=== PATIENT | male | born 1935 | race Caucasian/White ===

== ENCOUNTER 2017-03-11 23:22 | Inpatient (IN) ==
[2017-03-11] MEDS ORDERED: *HR* Morphine 2 MG/ML SYRINGE IVP ONE (23:46)
[2017-03-12 00:28] LABS: Basophils % 0.4 %; Eosinophils % 0.1 %; Hematocrit 30.8 % (37.5-50.1); Hemoglobin 9.5 g/dL (12.9-16.9); Immature Granulocytes % 1.4 % (0-4); Lymphocytes # 0.3 K/mcL (0.6-4.6); Lymphocytes % 3.6 %; Mean Corpuscular HGB Conc 30.8 g/dL (31.6-35.5); Mean Corpuscular Hemoglobin 29.8 pg (28.0-33.3); Mean Corpuscular Volume 96.6 fL (83.0-100.0); Mean Platelet Volume 9.1 fL (9.4-12.4); Monocytes # 0.5 K/mcL (0.0-1.3); Monocytes % 7.2 %; Neutrophils # 6.3 K/mcL (1.6-8.9); Platelet Count 217 K/mcL (140-400); Red Blood Count 3.19 M/mcL (4.19-5.50); Red Cell Distribution Width 15.6 % (11.5-14.5); Segmented Neutrophils % 87.3 %
[2017-03-12 00:42] LABS: Alanine Aminotransferase 13 Units/L (7-52); Albumin 3.7 g/dL (3.5-5.7); Albumin/Globulin Ratio 1.7 (1.1-2.2); Alkaline Phosphatase 77 Units/L (34-104); Aspartate Amino Transferase 15 Units/L (13-39); BUN/Creatinine Ratio 22 (6-26); Blood Urea Nitrogen 23 mg/dL (8-23); Calcium 10.5 mg/dL (8.6-10.3); Carbon Dioxide 27 mEq/L (23-29); Chloride 103 mEq/L (98-107); Globulin 2.2 g/dL (2.4-3.5); Glucose 208 mg/dL (70-105); Osmolality,Calculated 292 (280-300); Potassium 3.9 mEq/L (3.5-5.1); Sodium 136 mEq/L (136-145); Total Protein 5.9 g/dL (6.4-8.9); eGFR For African Americans > 60 (> 60); eGFR For Non-African Americans > 60 (> 60)
--- NOTE | 2017-03-12 02:31 | Emergency Department Note ---
Disposition Clinical Impression: Influenza A Abdominal pain Qualifiers: Abdominal location: generalized Qualified Code(s): R10.84 - Generalized abdominal pain Chronic back pain Qualifiers: Back pain location: low back pain Back pain laterality: unspecified Sciatica presence: unspecified whether sciatica present Qualified Code(s): M54.5 - Low back pain; G89.29 - Other chronic pain; G89.29 - Other chronic pain Anemia Qualifiers: Anemia type: unspecified type Qualified Code(s): D64.9 - Anemia, unspecified Disposition: Admitted As Inpatient Condition: Fair Time of Disposition: 02:51 Abdominal Pain HPI - General Chief Complaint: ED Abdominal Pain Stated Complaint: Back Pain / Abd Pain / Constipation Time Seen by Provider: 03/11/17 23:33 Source: patient, EMS Mode of arrival: EMS Limitations: no limitations Nursing Notes Reviewed: Yes Vital Signs Reviewed: Yes - History of Present Illness HPI Narrative: 81-year-old male was transferred here via the [place] [facility] as they said they are unable to admit the patient to their hospital. They said he was out coming over here for A. fib with RVR as well as abdominal pain. After talking to family they said earlier today they went to [facility] to have an outpatient heart catheterization done but they said that he was to 6A sent him to the [facility] to get evaluated. There they found that he was in A. 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 So they transferred him here they said that he is only complaining of abdominal pain. Patient says he does have back pain but is chronic from a surgery he had many years ago. Patient is not complaining of any bloody stools or bloody vomit. He is not currently nauseous. Healing complaining of abdominal pain and feels his belly is bloated. He denied any chest pain setting no shortness of breath. They did do labs and imaging there. Finding no acute abnormalities. Patient otherwise having no complaints including headache, blurry vision, neck pain, back pain, shortness of breath, chest pain, changes in bowel movement, pain with urination pain or tingling in the arms or legs or any generalized weakness. Pain Scale: 7 - Related Data Allergies Allergy/AdvReac Type Severity Reaction Status Date / Time No Known Allergies Allergy Verified 03/11/17 23:26 Review of Systems: 10 point review of systems done and negative unless otherwise stated in history of present illness. All systems ED: reviewed and negative except as stated. Review of Systems: As Per HPI Abdominal Pain PMH - Past Medical History Medical history: Reports: atrial fibrillation, diabetes, GERD, hyperlipidemia, hypertension, other Male Surgical History: Reports: appendectomy, herniorrhaphy, other Psychiatric history: Reports: no psych history - Social History Smoking status: Former smoker Alcohol use: Reports: none Drug use: Reports: none Physical Exam - General Limitations: no limitations General appearance: alert - Head Head exam: atraumatic, normocephalic, normal inspection - Eye Eye exam: Present: normal appearance, PERRL, EOMI - ENT ENT exam: normal exam, normal oropharynx, mucous membranes moist - Neck Neck exam: Present: normal inspection, full ROM, trachea midline - Chest Chest inspection: Present: normal inspection, symmetric chest wall rise - Respiratory Respiratory exam: Present: normal lung sounds bilaterally - Cardiovascular Cardiovascular exam: Present: regular rate, normal rhythm, normal heart sounds - Abdominal Exam Abdominal exam: Present: soft, tenderness, normal bowel sounds. Absent: distention, guarding, rebound, rigidity, Guaman's sign, Rovsing's sign, tenderness at McBurney's Point Abdominal tenderness: Present: diffuse, mild - Extremities Exam Extremities exam: Present: normal inspection, full ROM. Absent: tenderness, pedal edema - Expanded Lower Extremity Exam Neurovascular/Tendon exam: Present: normal capillary refill. Absent: pulse deficit, motor deficit, sensory deficit, tendon deficit - Back Exam Back exam: Present: normal inspection, full ROM. Absent: tenderness - Neurological Exam Neurological exam: Present: alert, oriented X3 - Skin Skin exam: Present: warm, dry, intact, normal color Course Course Narrative: 81-year-old male presented to the emergency department complaining of abdominal pain and many other issues. We will review the labs at the [place] did including CBC , BMP, coags as well as getting a CT of his abdomen and pelvis will upload the chest x-ray and abdominal series. We will give morphine for pain control. Was doing EKG Vital Signs Temperature 98.8 F 03/11/17 23:26 Pulse Rate 109 03/11/17 23:26 Respiratory Rate 14 03/11/17 23:26 Blood Pressure 125/86 03/11/17 23:26 O2 Sat by Pulse Oximetry 94 03/11/17 23:26 Temperature 98.8 F 03/11/17 23:26 Pulse Rate 109 03/11/17 23:26 Respiratory Rate 16 03/12/17 03:29 Blood Pressure 100/75 03/12/17 03:29 O2 Sat by Pulse Oximetry 97 03/12/17 00:26 Oxygen Delivery Oxygen Delivery Nasal Cannula Abdominal Pain - MDM Narrative Medical decision making narrative: 81-year-old male presented to the emergency department complaining of abdominal pain is transferred [place] the [place]. At the [place] he had a hemoglobin of 10.4 today's hemoglobin was now down to 9.4. This is a 1. drop in the course of the day. He wasseen at [place] for a heart catheter due to him being sick since him over there. They diagnosed with having A. fib with RVR after we evaluated his EKG he was in sinus tachycardia with premature atrial complexes. This was not in A. fib with RVR he was recently put on eloquis because of recent being in A. fib this occurred about 1 month ago. He says he has had no hematochezia or hematemesis. There is no source was active bleeding. CT came back showing no acute abnormalities other than a dilated common bile duct. He is having any epigastric pain. Patient's main complaint is just chronic back pain. We gave him morphine which did help a little with the pain. EKG done here again showed no atrial fibrillation with RVR chest x-rays were looked at also were normal. Patient most likely needs to be admitted and observed overnight due to the 1. hemoglobin drop over the course of the day. Spoke with Dr. Jama the hospitalist agreed to admit the patient to their service he recommended telemetry bed. This was done. Patient is admitted in stable condition. Abdomen/Pelvis CT 03/12/17 23:46 IMPRESSION: Dilated common bile duct. Abdominal aortic aneurysm, 4.6 cm. (See recommendations below). RECOMMENDATIONS: Managing Abdominal Aortic Aneurysms 2.6-2.9 cm: Every 5 years* 3.0-3.4 cm: Every 3 years. 3.5-3.9 cm: Every 1 year. 4.0-4.4 cm: Every 1 year. Recommend vascular consultation. 4.5-5.4 cm: Every 6 months. Recommend vascular consultation. Greater than or equal to 5.5 cm: Referral to vascular surgeon. *For abdominal aortas with maximum diameter of 2.6-2.9 cm meeting criteria for AAA (>50% of proximal normal segment). Reference: J Vasc Surg. 2008;50(4 Suppl):S2-49 D/ / Kenji Munson MD / Kenji Munson MD Interpreting Provider: Kenji Munson MD - Medical Records Medical records reviewed: Yes I reviewed the patient's medical records. - Lab Data Lab results reviewed: Yes I reviewed the patient's lab results. Result diagrams: 03/12/17 00:18 03/12/17 00:18 Lab Results 03/12/17 03/12/17 03/12/17 Range/Units 00:18 00:18 00:18 WBC 7.2 (4.3-11.1) K/mcL RBC 3.19 L (4.19-5.50) M/mcL Hgb 9.5 L (12.9-16.9) g/dL Hct 30.8 L (37.5-50.1) % MCV 96.6 (83.0-100.0) fL MCH 29.8 (28.0-33.3) pg MCHC 30.8 L (31.6-35.5) g/dL RDW 15.6 H (11.5-14.5) % Plt Count 217 (140-400) K/mcL MPV 9.1 L (9.4-12.4) fL Immature Gran % 1.4 (0-4) % Seg Neutrophils % 87.3 % Lymphocytes % 3.6 % Monocytes % 7.2 % Eosinophils % 0.1 % Basophils % 0.4 % Neutrophils # 6.3 (1.6-8.9) K/mcL Lymphocytes # 0.3 L (0.6-4.6) K/mcL Monocytes # 0.5 (0.0-1.3) K/mcL Eosinophils # 0.0 (0.0-0.6) K/mcL Basophils # 0.0 (0.0-0.2) K/mcL Sodium 136 (136-145) mEq/L Potassium 3.9 (3.5-5.1) mEq/L Chloride 103 (98-107) mEq/L Carbon Dioxide 27 (23-29) mEq/L BUN 23 (8-23) mg/dL Creatinine 1.03 (0.70-1.30) mg/dL Est GFR ( Amer) > 60 (> 60) Est GFR (Non-Af Amer) > 60 (> 60) BUN/Creatinine Ratio 22 (6-26) Glucose 208 H (70-105) mg/dL Calculated Osmolality 292 (280-300) Lactic Acid (0.5-2.2) mmol/L Calcium 10.5 H (8.6-10.3) mg/dL Total Bilirubin 1.0 (0.3-1.0) mg/dL AST 15 (13-39) Units/L ALT 13 (7-52) Units/L Alkaline Phosphatase 77 (34-104) Units/L Troponin I 0.03 (< 0.04) ng/mL Serum Total Protein 5.9 L (6.4-8.9) g/dL Albumin 3.7 (3.5-5.7) g/dL Globulin 2.2 L (2.4-3.5) g/dL Albumin/Globulin Ratio 1.7 (1.1-2.2) Lipase (11-82) Units/L 03/12/17 03/12/17 Range/Units 00:18 00:18 WBC (4.3-11.1) K/mcL RBC (4.19-5.50) M/mcL Hgb (12.9-16.9) g/dL Hct (37.5-50.1) % MCV (83.0-100.0) fL MCH (28.0-33.3) pg MCHC (31.6-35.5) g/dL RDW (11.5-14.5) % Plt Count (140-400) K/mcL MPV (9.4-12.4) fL Immature Gran % (0-4) % Seg Neutrophils % % Lymphocytes % % Monocytes % % Eosinophils % % Basophils % % Neutrophils # (1.6-8.9) K/mcL Lymphocytes # (0.6-4.6) K/mcL Monocytes # (0.0-1.3) K/mcL Eosinophils # (0.0-0.6) K/mcL Basophils # (0.0-0.2) K/mcL Sodium (136-145) mEq/L Potassium (3.5-5.1) mEq/L Chloride (98-107) mEq/L Carbon Dioxide (23-29) mEq/L BUN (8-23) mg/dL Creatinine (0.70-1.30) mg/dL Est GFR ( Amer) (> 60) Est GFR (Non-Af Amer) (> 60) BUN/Creatinine Ratio (6-26) Glucose (70-105) mg/dL Calculated Osmolality (280-300) Lactic Acid 1.3 (0.5-2.2) mmol/L Calcium (8.6-10.3) mg/dL Total Bilirubin (0.3-1.0) mg/dL AST (13-39) Units/L ALT (7-52) Units/L Alkaline Phosphatase (34-104) Units/L Troponin I (< 0.04) ng/mL Serum Total Protein (6.4-8.9) g/dL Albumin (3.5-5.7) g/dL Globulin (2.4-3.5) g/dL Albumin/Globulin Ratio (1.1-2.2) Lipase 4 L (11-82) Units/L - Radiology Data Radiology results reviewed: Yes I reviewed the patient's radiology results. - EKG Data EKG attestation: Yes I reviewed and interpreted this EKG. EKG results narrative: EKG done at 2339 review myself and attending shows sinus tachycardia with occasional PVCs at a rate of 124, PA interval 128, QRS 86, QTC 371 with a normal axis. There is no acute ST changes, no acute T-wave changes no signs of any other ischemia. No signs of hypertrophy, heart strain, heart block. No signs of WPW/Brugada syndrome no old EKG to compare with. Attestation Statement - Attestation Attestation: I, Jaren Sigala MD, personally evaluated this patient and discussed their management with the resident physician. I reviewed the resident's note and agree with the documented findings, medical decision making, and plan of care. 81-year-old male who was transferred here from the [place] urgent care for admission and evaluation of abdominal pain and back pain. Patient was recently admitted to the hospital about 5 days ago with atrial fibrillation with RVR which was apparently due at that time. He was started on Eliquis. He presented to the [place] complaining of abdominal pain and constipation for the past several days. He also complains of back pain however this is chronic. He has had previous back surgeries and is on chronic pain medications for the back pain. He complains of some nausea but no vomiting. No melena, hematemesis, or hematochezia. No dysuria or gross hematuria but he does complain of some urinary incontinence which started yesterday. On examination patient is a well-developed well-nourished elderly male in no acute distress. He is alert and oriented. There is no cyanosis or diaphoresis. Chest is nontender to palpation. Breath sounds are clear and equal bilaterally. Heart regular with a mild tachycardia. Abdomen soft with slightly increased bowel sounds. There is mild diffuse tenderness. No guarding or rebound tenderness. No obvious organomegaly or masses. No tympany or distention. Labs reviewed. Flu swab positive for influenza A. EKG shows a sinus tachycardia. CT of the abdomen and pelvis showed dilated common bowel duct but otherwise no acute abnormality. The hospitalist, Dr. Jama, was consulted and accepted admission of the patient.
[2017-03-12] MEDS ORDERED: Naloxone 0.4 MG/ML INJ IVP PRN (06:48)
[2017-03-12] MEDS ORDERED: D5% in Water 1,000 ML IVC PRN (06:49)
[2017-03-12] MEDS ORDERED: Dextrose Gel 15 GM/37.5 ML TUBE PO PRN ×2 (06:49)
[2017-03-12] MEDS ORDERED: *HR* Dextrose 50 % in Water (Syg) 50 ML SYRINGE IVP PRN (06:49)
[2017-03-12] MEDS: Insulin LISPRO 300 UNITS/3 ML VIAL SQ SCH ×4 (07:45→21:34)
[2017-03-12 10:20] LABS: Basophils % 0.3 %; Eosinophils # 0.1 K/mcL (0.0-0.6); Eosinophils % 1.5 %; Hematocrit 33.1 % (37.5-50.1); Hemoglobin 10.2 g/dL (12.9-16.9); Immature Granulocytes % 1.4 % (0-4); Lymphocytes # 0.8 K/mcL (0.6-4.6); Lymphocytes % 14.4 %; Mean Corpuscular HGB Conc 30.8 g/dL (31.6-35.5); Mean Corpuscular Hemoglobin 29.8 pg (28.0-33.3); Mean Corpuscular Volume 96.8 fL (83.0-100.0); Mean Platelet Volume 8.6 fL (9.4-12.4); Monocytes # 0.7 K/mcL (0.0-1.3); Monocytes % 11.6 %; Neutrophils # 4.1 K/mcL (1.6-8.9); Platelet Count 205 K/mcL (140-400); Red Blood Count 3.42 M/mcL (4.19-5.50); Red Cell Distribution Width 15.8 % (11.5-14.5); Segmented Neutrophils % 70.8 %
[2017-03-12 10:42] LABS: BUN/Creatinine Ratio 19 (6-26); Blood Urea Nitrogen 21 mg/dL (8-23); Calcium 10.2 mg/dL (8.6-10.3); Carbon Dioxide 30 mEq/L (23-29); Chloride 101 mEq/L (98-107); Glucose 142 mg/dL (70-105); Magnesium 1.6 mg/dL (1.6-2.6); Osmolality,Calculated 289 (280-300); Potassium 3.6 mEq/L (3.5-5.1); Sodium 137 mEq/L (136-145); eGFR For African Americans > 60 (> 60); eGFR For Non-African Americans > 60 (> 60)
[2017-03-12] MEDS ORDERED: *HR* HYDROcodone/Acet 5/325 mg TABLET PO PRN (11:12)
[2017-03-12] MEDS ORDERED: Acetaminophen 325 MG TABLET PO PRN (11:12)
[2017-03-12] MEDS ORDERED: methylPREDNISolone 125 MG/2 ML VIAL IVP ONE (11:17)
[2017-03-12 12:07] LABS: Hematocrit 31.3 % (37.5-50.1); Hemoglobin 9.8 g/dL (12.9-16.9)
--- NOTE | 2017-03-12 12:15 | Internal Med History&Physical ---
Date of Encounter: 03/12/17 Time of Encounter: 10:30 Assessment and Plan (1) Anemia Current visit: Yes Status: Acute 1 according to the patient's patient has a history of anemia he was seen by gps navigation installer at the [facility] she is unsure of why he is anemic. She states that he normally has a hemoglobin around 8-9 he did have a colonoscopy and EGD last year at [facility] EGD was okay apparently he had beginnings of diverticulosis. patient presented from the [facility] after having 1 g hemoglobin drop. He denies any hematemesis melena or hematochezia we will obtain stool for occult blood monitor H/H every 6 -transfuse if less than 8 Anemia workup We will initiate on a Protonix drip I will hold Eliquis and aspirin for now Clear liquid diet Qualifiers: Anemia type: unspecified type Qualified Code(s): D64.9 - Anemia, unspecified (2) Diabetes mellitus Current visit: No Status: Chronic Accu-Cheks before meals and at bedtime with sliding scale Qualifiers: Diabetes mellitus type: type 2 Diabetes mellitus complication status: without complication Diabetes mellitus residential insulin use: with tank terminal gauger use Qualified Code(s): E11.9 - Type 2 diabetes mellitus without complications ; Z79.4 - parts counterman (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 We will give oxygen titrated to maintain SPO2 90% We will give steroids Continue bronchodilators Levaquin (4) Influenza A Current visit: Yes Status: Acute We will give Tamiflu continuing oxygen (5) Chronic back pain Current visit: Yes Status: Acute Continue with home pain medication Qualifiers: Back pain location: low back pain Back pain laterality: unspecified Sciatica presence: unspecified whether sciatica present Qualified Code(s): M54.5 - Low back pain; G89.29 - Other chronic pain; G89.29 - Other chronic pain (6) CAD (coronary artery disease) Current visit: Yes Status: Acute 1 according to patient and patient was to undergo cardiac catheterization for an occlusive coronary artery disease on last Tuesday at [facility]-the attempt was to a radial approach the patient does have a 4.6 L abdominal aortic aneurysm and smash hand was unable to cannulate vessel/ complete the procedure. He was to undergo catheterization on Tuesday, however he canceled because he was feeling ill. Presently chest pain free, he is sinus tachycardia. I did review EKG with Dr. Handy no ST-T wave abnormalities We will continue with home medications metoprolol however we will hold aspirin for now due to anemia continue a statin We will obtain medical records from [facility] Consult cardiology Qualifiers: Coronary Disease-Associated Artery/Lesion type: [place] artery [place] vs. transplanted heart: [place] heart Associated angina: without angina Qualified Code(s): I25.10 - Atherosclerotic heart disease of [place] coronary artery without angina pectoris (7) Elevated troponin Current visit: Yes Status: Acute 1 we will continue to trend troponin Cardiology consulted cont cardiac monitoring (8) CHF (congestive heart failure) Current visit: Yes Status: Acute 1 BNP was 738 patient having increasing shortness of breath, vascular congestion on chest x-ray we will continue with Lasix Monitor intake and output daily weights Fluid restriction Continues cardiac monitoring Qualifiers: Congestive heart failure type: unspecified Congestive heart failure chronicity: acute on chronic Qualified Code(s): I50.9 - Heart failure, unspecified (9) Atrial fibrillation Current visit: Yes Status: Acute Presently in sinus tachycardia. We will continue with digoxin and metoprolol we will hold Eliquis due to anemia 2 consult to cardiology Continuous cardiac monitoring Qualifiers: Atrial fibrillation type: paroxysmal Qualified Code(s): I48.0 - Paroxysmal atrial fibrillation (10) Abdominal pain Current visit: Yes Status: Acute 1 patient states he has not had a bowel movement in approximately 7 days he is passing gas he has little appetite. CT of abdomen does show a abdominal aortic aneurysm 4.6 cm which patient was aware non-leaking/dissecting. Dilated common bile duct Liver panel is negative. We will continue with stool softeners Qualifiers: Abdominal location: generalized Qualified Code(s): R10.84 - Generalized abdominal pain Internal Medicine - H&P: HPI Chief complaint: abd pain Admitted From: Emergency Dept Plans for Post Hospital Care: Home History of present illness: Mr. Fonseca is a 81 year old male previously past medical history of of atrial fibrillation diabetes GERD hyperlipidemia hypertension AAA. According to the patient he was seen at [facility] last week was to undergo a cardiac catheterization for stent placement. Apparently attempted radial access and was unable to complete due to aneurysm. He was sent home last Tuesday and was to follow-up on Tuesday as an outpatient for cardiac catheterization. Since being discharged patient has been experiencing abdominal pain and lower back pain. Patient does have history of back surgery occurring approximately 2 months ago and does have chronic back pain. Denies any hematemesis melena or hematochezia He states he has not had a bowel movement in 7 days however he has been passing gas no vomiting. Presented at the [facility] and while there he was diagnosed with A. fib RVR and abdominal pain he was transferred to this facility for further workup and evaluation. According to ER records CT of abdomen was completed which did reveal 4.6 cm aortic aneurysm slightly dilated bile duct. Lab work did reveal an anemia hemoglobin drop 1 g over 24-hour period. He was positive for influenza A He has been admitted for further workup and evaluation. Presently patient complains of cough right lower quadrant abdominal pain lower back pain. He is hemodynamically stable at this time Past Med Surg Social Fam HX - Past Medical History Medical history: atrial fibrillation, diabetes, GERD, hyperlipidemia, hypertension, other Psychiatric history: no psych history - Social History Smoking Status: Former smoker Smokeless Tobacco Status: No Alcohol use: none Drug use: none - Family History Mother Hx Family Endocrine Disorder: Yes (dm) Father Hx Family Cardiac Disorders: Yes Internal Medicine - H&P: Meds Apixaban [Eliquis] 5 mg PO BID 03/12/17 [History] Aspirin [Lo-Dose Aspirin EC] 81 mg PO DAILY 03/12/17 [History] Cyclobenzaprine [Flexeril] 10 mg PO BID 03/12/17 [History] Digoxin [Lanoxin] 0.125 mg PO DAILY 03/12/17 [History] Doxazosin Mesylate [Cardura] 2 mg PO DAILY 03/12/17 [History] Folic Acid 1 mg PO DAILY 03/12/17 [History] Furosemide [Lasix] 20 mg PO DAILY 03/12/17 [History] Gabapentin [Neurontin] 100 mg PO TID 03/12/17 [History] Insulin ASPART [Novolog Flexpen] 2 - 10 unit SQ TIDWM 03/12/17 [History] Insulin Glargine [Lantus] 18 units SQ QAM 03/12/17 [History] Metoprolol Succinate 50 mg PO BID 03/12/17 [History] Omeprazole [PriLOSEC] 40 mg PO BID 03/12/17 [History] OxyCODONE/APAP 5/325 [Percocet 5/325 MG] 1 tab PO Q4H PRN 03/12/17 [History] PredniSONE [Deltasone] 10 mg PO DAILY 03/12/17 [History] Simvastatin [Zocor] 40 mg PO HS 03/12/17 [History] Sucralfate [Carafate] 1 gm PO QID 03/12/17 [History] Tiotropium [Spiriva] 18 mcg IH DAILY 03/12/17 [History] Tramadol HCl [Ultram] 50 mg PO QID PRN 03/12/17 [History] cephALEXin [Keflex] 500 mg PO BID 03/12/17 [History] 3 Allergy/AdvReac Type Severity Reaction Status Date / Time celecoxib [From Celebrex] Allergy Hives Verified 03/12/17 19:13 Penicillins Allergy Hives Verified 03/12/17 19:13 Sulfa (Sulfonamide Allergy Hives Verified 03/12/17 19:13 Antibiotics) All Systems PM: A 10-system review of systems was performed and is negative for pertinent findings except as documented above in the HPI. - Constitutional Constitutional: no chills, no fever(s), no night sweats - EENT Eyes: no change in vision, no discharge, no pain, no photophobia Nose, mouth and throat: no dysphagia, no nasal discharge, no neck pain, no sore throat - Cardiovascular Cardiovascular ROS IM: chest pain, no diaphoresis, no dyspnea, no lightheadedness, no palpitations, no syncope - Respiratory Respiratory: cough, wheezing, no dyspnea, no excessive phlegm production - Gastrointestinal Gastrointestinal: abdominal pain, no diarrhea, no hematemesis, no hematochezia, no melena, no nausea, no vomiting - Genitourinary Genitourinary ROS male: difficulty urinating - Musculoskeletal Musculoskeletal ROS IM: no numbness, no tingling - Integumentary Integumentary IM: no rash, no unusual bruising - Neurological Neurological ROS: no confusion, no convulsions, no focal weakness, no numbness, no tingling, no tremor(s) - Hematologic/Lymphatic Hematologic/Lymphatic: no easy bruising - Constitutional Vitals: Temp Pulse Resp BP Pulse Ox 100.3 F H 98 16 124/56 93 03/12/17 11:33 03/12/17 11:33 03/12/17 11:33 03/12/17 11:33 03/12/17 11:33 General appearance: Present: A&O X 3 - Head Head exam: Present: atraumatic, normocephalic - Eye Eye exam: Present: PERRL, conjuntiva pink, sclera anicteric Pupils: Present: PERRL - Neck Neck exam general surgery: Present: supple, trachea midline. Absent: lymphadenopathy - Respiratory Respiratory exam: Present: wheezes. Absent: accessory muscle use, rales, rhonchi - Cardiovascular Cardiovascular exam: Present: RRR, +S1, +S2. Absent: diastolic murmur, gallop, rubs, systolic murmur - GI/Abdominal GI/Abdominal exam: Present: normal bowel sounds, soft, no peritoneal signs. Absent: distended, tenderness - Extremities Exam Extremities exam: Present: warm, radial pulses palpable and symmetrical. Absent : calf tenderness, cyanotic, pedal edema Internal Med - H&P Results - Labs CBC & Chem 7: 03/12/17 16:43 03/12/17 10:13 Labs: Short CBC 03/12/17 03/12/17 Range/Units 10:13 11:39 WBC 5.8 (4.3-11.1) K/mcL Hgb 10.2 L 9.8 L (12.9-16.9) g/dL Hct 33.1 L 31.3 L (37.5-50.1) % Plt Count 205 (140-400) K/mcL Neutrophils # 4.1 (1.6-8.9) K/mcL BMP 03/12/17 10:13 Sodium 137 Potassium 3.6 Chloride 101 Carbon Dioxide 30 H BUN 21 Creatinine 1.13 Glucose 142 H Calcium 10.2 Cardiac Enzymes 03/12/17 Range/Units 10:14 Troponin I 0.05 H* (< 0.04) ng/mL - EKG Data EKG shows normal: sinus rhythm Rate: tachycardia - Impressions ITS Impressions Abdomen/Pelvis CT 03/12/17 23:46 IMPRESSION: Dilated common bile duct. Abdominal aortic aneurysm, 4.6 cm. (See recommendations below). RECOMMENDATIONS: Managing Abdominal Aortic Aneurysms 2.6-2.9 cm: Every 5 years* 3.0-3.4 cm: Every 3 years. 3.5-3.9 cm: Every 1 year. 4.0-4.4 cm: Every 1 year. Recommend vascular consultation. 4.5-5.4 cm: Every 6 months. Recommend vascular consultation. Greater than or equal to 5.5 cm: Referral to vascular surgeon. *For abdominal aortas with maximum diameter of 2.6-2.9 cm meeting criteria for AAA (>50% of proximal normal segment). Reference: J Vasc Surg. 2008;50(4 Suppl):S2-49 D/ / Kenji Munson MD / Kenji Munson MD Interpreting Provider: Kenji Munson MD - Diagnostic Studies Other Images Additional comments: Abdomen/Pelvis CT 03/12/17 23:46
[2017-03-12 13:03] LABS: % Iron Saturation 9 % (20-55); Iron 30 mcg/dL (65-175); Lactate Dehydrogenase 216 Units/L (140-271); Transferrin 238 mg/dL (203-362)
--- NOTE | 2017-03-12 13:34 | Event Note ---
Date of Encounter: 03/12/17 Time of Encounter: 13:30 Patients and examined withedition. [facility] was noted to have 1 g hemoglobin dropped in addition to back pain.. For a fib denies any hematemesis melena or hematochezia. Follow H&H and start on photonics 14 mg IV twice-daily. Agent is also short of breath with an element of COPD exacerbation and will be given steroids nebulizer treatments and antibiotics for acute bronchitis. Patient is supposed to have intervention for an occlusive coronary artery disease however this was recently attempted through the radial approach (since the patient has 4.6 cm abdominal aortic aneurysm) however someone mentioned what looks like final block press operator was unable to cannulate vessel/complete procedure and will be repeated again. Will get outside records and consult cardiology. Patient is a very poor historian. Patient has not had a bowel movement in 1 week, will give stool softners. CT shows 4.6 AAA (no prior records) but no leak or dissection
[2017-03-12] MEDS: Aspirin Enteric Coated 81 MG Tablet PO SCH (14:18)
[2017-03-12] MEDS: Gabapentin 100 MG CAPSULE PO SCH ×2 (14:53→21:36)
[2017-03-12] MEDS: Metoprolol XL (24 HR) Succ 50 MG TAB.ER.24H PO SCH ×2 (14:53→21:32)
[2017-03-12] MEDS: methylPREDNISolone 125 MG/2 ML VIAL IVP SCH ×4 (14:55→23:13)
[2017-03-12] MEDS: Levofloxacin 750 MG/150 ML 750 MG/150 ML BAG IVPB SCH (15:05)
[2017-03-12] MEDS: Levalbuterol Neb 0.63 MG/3 ML IH SCH ×3 (16:04→22:40)
[2017-03-12] MEDS: Furosemide 40 MG/4 ML VIAL IVP SCH ×2 (16:06→17:21)
[2017-03-12] MEDS: Tiotropium 18 MCG inhalation IH SCH (16:11)
[2017-03-12 16:58] LABS: Hemoglobin 9.1 g/dL (12.9-16.9)
[2017-03-12] MEDS ORDERED: methylPREDNISolone 125 MG/2 ML VIAL IVP SCH (17:00)
[2017-03-12] MEDS ORDERED: Pantoprazole 40 MG VIAL IVP SCH (18:00)
[2017-03-12] MEDS: Pantoprazole 40 MG in 0.9 % Sodium Chloride Mini Bag 100 ML IVC SCH ×2 (18:31→23:07)
[2017-03-12] MEDS ORDERED: Insulin LISPRO 300 UNITS/3 ML VIAL SQ SCH (21:00)
[2017-03-12] MEDS ORDERED: Metoprolol XL (24 HR) Succ 50 MG TAB.ER.24H PO SCH (21:00)
[2017-03-12] MEDS: *HR* HYDROcodone/Acet 5/325 mg TABLET PO PRN (21:35)
[2017-03-12] MEDS: Sennosides/Docusate Sodium TABLET PO SCH (21:36)
[2017-03-12 23:04] LABS: Hemoglobin 9.6 g/dL (12.9-16.9)
[2017-03-13] MEDS: Pantoprazole 40 MG in 0.9 % Sodium Chloride Mini Bag 100 ML IVC SCH ×2 (04:18→08:53)
[2017-03-13] MEDS: Levalbuterol Neb 0.63 MG/3 ML IH SCH ×4 (04:46→21:19)
[2017-03-13] MEDS: methylPREDNISolone 125 MG/2 ML VIAL IVP SCH ×3 (07:00→17:30)
[2017-03-13 08:03] LABS: Hematocrit 30.3 % (37.5-50.1); Hemoglobin 9.5 g/dL (12.9-16.9); Immature Granulocytes % 0.9 % (0-4); Lymphocytes # 0.1 K/mcL (0.6-4.6); Lymphocytes % 4.4 %; Mean Corpuscular HGB Conc 31.4 g/dL (31.6-35.5); Mean Corpuscular Hemoglobin 29.5 pg (28.0-33.3); Mean Corpuscular Volume 94.1 fL (83.0-100.0); Mean Platelet Volume 8.9 fL (9.4-12.4); Monocytes # 0.2 K/mcL (0.0-1.3); Monocytes % 6.9 %; Neutrophils # 2.8 K/mcL (1.6-8.9); Platelet Count 205 K/mcL (140-400); Red Blood Count 3.22 M/mcL (4.19-5.50); Red Cell Distribution Width 15.5 % (11.5-14.5); Segmented Neutrophils % 87.8 %
[2017-03-13 08:06] LABS: Platelet Estimate Normal (Normal)
[2017-03-13] MEDS: Gabapentin 100 MG CAPSULE PO SCH ×3 (08:37→21:07)
[2017-03-13] MEDS: Sennosides/Docusate Sodium TABLET PO SCH ×2 (08:37→21:07)
[2017-03-13] MEDS: Metoprolol XL (24 HR) Succ 50 MG TAB.ER.24H PO SCH ×2 (08:37→21:07)
[2017-03-13] MEDS: Folic Acid 1 MG TABLET PO SCH (08:37)
[2017-03-13 08:38] LABS: BUN/Creatinine Ratio 28 (6-26); Blood Urea Nitrogen 29 mg/dL (8-23); Calcium 9.9 mg/dL (8.6-10.3); Carbon Dioxide 31 mEq/L (23-29); Chloride 100 mEq/L (98-107); Glucose 225 mg/dL (70-105); Magnesium 1.9 mg/dL (1.6-2.6); Osmolality,Calculated 297 (280-300); Potassium 4.2 mEq/L (3.5-5.1); Sodium 137 mEq/L (136-145); eGFR For African Americans > 60 (> 60); eGFR For Non-African Americans > 60 (> 60)
[2017-03-13] MEDS: Levofloxacin 750 MG/150 ML 750 MG/150 ML BAG IVPB SCH (08:38)
[2017-03-13] MEDS: Furosemide 40 MG/4 ML VIAL IVP SCH (08:38)
[2017-03-13] MEDS: Insulin LISPRO 300 UNITS/3 ML VIAL SQ SCH ×4 (08:39→21:08)
[2017-03-13] MEDS ORDERED: *HR* Digoxin 0.125 MG TABLET PO SCH (09:00)
[2017-03-13] MEDS: Tiotropium 18 MCG inhalation IH SCH (10:16)
--- NOTE | 2017-03-13 11:08 | Internal Med Progress Note ---
Date of Encounter: 03/13/17 Time of Encounter: 11:06 - Assessment and plan (1) Anemia Current Visit: Yes Status: Acute Assessment and plan: H&H has been stable here. No signs of bleeding. BUN is 29. was 21 yesterday. Switch Protonix drips to oral PPI. Check stools for occult bleeding. Check ferritin levels. Rest of iron studies are noted. Eliquis has been held on admission for fear of GI bleed. If stools are negative for bleed I will restart it. Qualifiers: Anemia type: unspecified type Qualified Code(s): D64.9 - Anemia, unspecified (2) Abdominal pain Current Visit: Yes Status: Acute Assessment and plan: Better today. Unclear etiology. No bowel movement for a week. CT of abdomen does show a abdominal aortic aneurysm 4.6 cm which patient was aware non-leaking /dissecting. Dilated common bile duct. Liver panel is negative. We will continue with stool softeners Qualifiers: Abdominal location: generalized Qualified Code(s): R10.84 - Generalized abdominal pain (3) Influenza A Current Visit: Yes Status: Acute Assessment and plan: Continue Tamiflu day 2. (4) Chronic back pain Current Visit: Yes Status: Acute Assessment and plan: Continue pain control Qualifiers: Back pain location: low back pain Back pain laterality: unspecified Sciatica presence: unspecified whether sciatica present Qualified Code(s): M54.5 - Low back pain; G89.29 - Other chronic pain; G89.29 - Other chronic pain (5) Diabetes mellitus Current Visit: No Status: Chronic Assessment and plan: Continue with Accu-Cheks. Continue with insulin sliding scale. Monitor glucose while receiving IV steroids. 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 We will continue that. Continue nebulizers. Wean down oxygen as tolerated. Continue with Levaquin. (7) CAD (coronary artery disease) Current Visit: Yes Status: Acute Assessment and plan: according to patient and patient was to undergo cardiac catheterization for an occlusive coronary artery disease on last Tuesday at [facility]-this was apparently unsuccessful. EKG with no ST-T wave abnormalities. Continue with home medications metoprolol. Continue statin. Aspirin is on hold for now due to possible GI bleed. Cardiology is consulted on admission. Qualifiers: Coronary Disease-Associated Artery/Lesion type: [place] artery [place] vs. transplanted heart: [place] heart Associated angina: without angina Qualified Code(s): I25.10 - Atherosclerotic heart disease of [place] coronary artery without angina pectoris (8) Elevated troponin Current Visit: Yes Status: Acute Assessment and plan: Remained around 2.05. Library Technology Instructor consulted. No chest pain. (9) CHF (congestive heart failure) Current Visit: Yes Status: Acute Assessment and plan: Likely an exacerbation of systolic heart failure. BNP was 738 and patient having increasing shortness of breath, vascular congestion on chest x-ray . Continue Lasix 40 mg daily. Monitor intake and output. daily weights. Fluid restriction. Continue beta shaggy. Qualifiers: Congestive heart failure type: unspecified Congestive heart failure chronicity: acute on chronic Qualified Code(s): I50.9 - Heart failure, unspecified (10) Atrial fibrillation Current Visit: Yes Status: Acute Assessment and plan: Weight control. Continue with beta shaggy and digoxin. Eliquis is on hold due to anemia. Cardiology is consulted. Qualifiers: Atrial fibrillation type: paroxysmal Qualified Code(s): I48.0 - Paroxysmal atrial fibrillation (11) DVT prophylaxis Current Visit: Yes Status: Acute Assessment and plan: scds - Subjective Interval history: Patient seen and examined. He was admitted yesterday with a hemoglobin drop as well as exacerbation of COPD and influenza. He has been afebrile. He is on 2 L of nasal cannula oxygen. - Constitutional Vitals: Temp Pulse Resp BP Pulse Ox 97.2 F L 92 16 107/68 96 03/13/17 07:47 03/13/17 07:47 03/13/17 07:47 03/13/17 07:47 03/13/17 07:47 General appearance: Present: A&O X 3 Exam: GEN: NAD CVS: RRR. S1, S2, No m/r/g RESP: Diminished with some expiratory wheezes at the b( ABD: Soft, NT, ND, +BS EXT: No edema. 2+ DP. No rashes NEURO: Nonfocal Internal Medicine: Result - Labs CBC & Chem 7: 03/13/17 07:11 03/13/17 07:11 Labs: Short CBC 03/12/17 03/12/17 03/12/17 Range/Units 11:39 16:43 22:56 WBC (4.3-11.1) K/mcL Hgb 9.8 L 9.1 L 9.6 L (12.9-16.9) g/dL Hct 31.3 L 29.0 L 30.0 L (37.5-50.1) % Plt Count (140-400) K/mcL Neutrophils # (1.6-8.9) K/mcL 03/13/17 Range/Units 07:11 WBC 3.2 L (4.3-11.1) K/mcL Hgb 9.5 L (12.9-16.9) g/dL Hct 30.3 L (37.5-50.1) % Plt Count 205 (140-400) K/mcL Neutrophils # 2.8 (1.6-8.9) K/mcL BMP 03/13/17 07:11 Sodium 137 Potassium 4.2 Chloride 100 Carbon Dioxide 31 H BUN 29 H Creatinine 1.04 Glucose 225 H Calcium 9.9 Cardiac Enzymes 03/12/17 03/12/17 03/12/17 Range/Units 10:14 16:43 22:56 Troponin I 0.05 H* 0.07 H* 0.05 H* (< 0.04) ng/mL - Impressions Impressions Chest X-Ray 03/12/17 13:50 IMPRESSION: Moderate prominence of interstitial lung markings may represent a pulmonary interstitial edema or chronic interstitial lung disease. Correlation with volume status is recommended. No focal consolidative pneumonia, significant pleural effusion, or pneumothorax. D/ / Calvin Haque MD / Calvin Haque MD Interpreting Provider: Calvin Haque MD Consult Discharge Plan - Plan [facility]: [facility] [Primary Care Provider] -
[2017-03-13 11:52] LABS: Ferritin 353 ng/ml (20-250)
[2017-03-13] MEDS: *HR* Digoxin 0.125 MG TABLET PO SCH (12:48)
--- NOTE | 2017-03-13 13:15 | Cardiology Consult Note ---
Date of Encounter: 03/13/17 Time of Encounter: 13:15 Assessment and Plan (1) CAD (coronary artery disease) Current Visit: Yes Status: Acute Per patient and , he underwent a diagnostic heart catheterization about a week ago at [facility]. His per assessment nurse is Dr. Monsivais. Per , they were only able to do a diagnostic catheterization because of the abdominal aortic aneurysm. Apparently, the procedure was terminated and he was evaluated by a surgeon. Again, per the surgeon said to proceed with heart catheterization. The heart catheterization was scheduled as an outpatient this past Tuesday the patient did not show because of not feeling well. After detailed discussion with the patient and , the expressed interest in possibly being transferred to [facility] where her ' s per assessment nurse is. I suggested we request records from [place] - order has been placed. We can review these before discussing further with the patient and . For now, continue aspirin and statin. Troponin elevation is mild, flat and adynamic not representing acute coronary syndrome. There are no acute EKG changes. Qualifiers: Coronary Disease-Associated Artery/Lesion type: [place] artery [place] vs. transplanted heart: [place] heart Associated angina: without angina Qualified Code(s): I25.10 - Atherosclerotic heart disease of [place] coronary artery without angina pectoris (2) Elevated troponin Current Visit: Yes Status: Acute Troponins are elevated mildly, flat and adynamic. They do not appear to represent acute coronary syndrome. Likely representing demand ischemia in the setting of influenza. No acute EKG changes. (3) Atrial fibrillation Current Visit: Yes Status: Acute Per and , atrial fibrillation was diagnosed at [facility]. He was placed on digoxin and metoprolol and anticoagulated with Eliquis. ECGs and telemetry here have not demonstrated atrial fibrillation but have shown sinus tachycardia with very frequent PACs. Suspect his heart rate will improve once the underlying illness is treated. At this time, metoprolol cannot be increased secondary to borderline blood pressures. Heart rates are in the 90's now. Patient is anticoagulated with Eliquis - hemoglobin remained stable. Replete electrolytes as necessary. Awaiting records from [place] - if they have not performed an echo, would recommend obtaining one to help guide management. Qualifiers: Atrial fibrillation type: paroxysmal Qualified Code(s): I48.0 - Paroxysmal atrial fibrillation (4) Abdominal aortic aneurysm Current Visit: Yes Status: Acute Apparently evaluated by a surgeon at [facility]. Awaiting medical records. Qualifiers: Presence of rupture: without rupture Qualified Code(s): I71.4 - Abdominal aortic aneurysm, without rupture Discussion w patient/family: The assessment and plan as outlined above was discussed with the patient and/or family members who expressed understanding and agreement. All questions were answered. Thank you for involving us in the care of your patient. Please call with any questions. History of Present Illness Consult date: 03/13/17 Requesting physician: Edith Culp Consult reason: AFib, CAD Chief complaint: Shortness of breath History of present illness: Mr. Fonseca is a 81 year old male presenting for abdominal discomfort and shortness of breath. He has difficulty hearing - history taking largely from . He apparently had not had a bowel movement in over a week. He was discovered to be Flu positive on presentation. He was recently admitted to [facility] for SOB, found to have new atrial fibrillation. During that visit, he underwent a LHC which by history taking was only diagnostic. The states that he was discovered to have an aortic aneurysm and the procedure was stopped. She said that a surgeon came to evaluate him, said to proceed with intervention which was planned for this Tuesday. The patient did not feel well over the past week and did not attend the outpatient catheterization. At the bedside, he is in no acute distress. He does admit to shortness of breath. He is not having chest pain or palpitations. Denies recent bleeding. He is on 2L NC. Was febrile yesterday. Hemoglobin is stable. Renal function is normal. Troponins are flat and adynamic. All EKGs and telemetry were reviewed. There is no demonstration of atrial fibrillation. Findings demonstrate sinus tach with frequent PACs. He had a CT of the abdomen and pelvis demonstrating a 4.6 cm abdominal aortic aneurysm. Past Med Surg Social Fam HX - Past Medical History Attestation: Yes The following information was validated with the patient. Source: patient, obtained from family Medical history: atrial fibrillation, diabetes, GERD, hyperlipidemia, hypertension, other Psychiatric history: no psych history - Social History Smoking Status: Former smoker Smokeless Tobacco Status: No Alcohol use: none Drug use: none - Family History Mother Hx Family Endocrine Disorder: Yes (dm) Father Hx Family Cardiac Disorders: Yes Medications and Allergies Apixaban [Eliquis] 5 mg PO BID 03/12/17 [History] Aspirin [Lo-Dose Aspirin EC] 81 mg PO DAILY 03/12/17 [History] Cyclobenzaprine [Flexeril] 10 mg PO BID 03/12/17 [History] Digoxin [Lanoxin] 0.125 mg PO DAILY 03/12/17 [History] Doxazosin Mesylate [Cardura] 2 mg PO DAILY 03/12/17 [History] Folic Acid 1 mg PO DAILY 03/12/17 [History] Furosemide [Lasix] 20 mg PO DAILY 03/12/17 [History] Gabapentin [Neurontin] 100 mg PO TID 03/12/17 [History] Insulin ASPART [Novolog Flexpen] 2 - 10 unit SQ TIDWM 03/12/17 [History] Insulin Glargine [Lantus] 18 units SQ QAM 03/12/17 [History] Metoprolol Succinate 50 mg PO BID 03/12/17 [History] Omeprazole [PriLOSEC] 40 mg PO BID 03/12/17 [History] OxyCODONE/APAP 5/325 [Percocet 5/325 MG] 1 tab PO Q4H PRN 03/12/17 [History] PredniSONE [Deltasone] 10 mg PO DAILY 03/12/17 [History] Simvastatin [Zocor] 40 mg PO HS 03/12/17 [History] Sucralfate [Carafate] 1 gm PO QID 03/12/17 [History] Tiotropium [Spiriva] 18 mcg IH DAILY 03/12/17 [History] Tramadol HCl [Ultram] 50 mg PO QID PRN 03/12/17 [History] cephALEXin [Keflex] 500 mg PO BID 03/12/17 [History] 3 Allergy/AdvReac Type Severity Reaction Status Date / Time celecoxib [From Celebrex] Allergy Hives Verified 03/12/17 19:13 Penicillins Allergy Hives Verified 03/12/17 19:13 Sulfa (Sulfonamide Allergy Hives Verified 03/12/17 19:13 Antibiotics) All Systems Review: A 10-system review of systems was performed and is negative for pertinent findings except as documented above in the HPI. - Cardiovascular Cardiovascular: as per HPI Physical Examination Vital Signs, Last 4 Hours Temp Pulse Resp BP Pulse Ox 03/13/17 12:14 97.6 F 91 16 95/55 94 03/13/17 10:16 16 95 General: Other (Able to converse, difficulty hearing) HEENT: Atraumatic, Other (Mucous membranes dry) Neck: No JVD Cardiac: Other (irregular rhythm, no apparent murmur) Lungs: Other (diminished breath sounds bilaterally, wheeze present) Neuro: Alert and responsive, No focal deficits noted Abdomen: Soft, Non-Tender (Mildly tender ), Other (bowel sounds are hypoactive) Extremities: Other (bilateral LE edema is mild) Results 03/13/17 07:11 03/13/17 07:11 Lab Results 03/12/17 03/12/17 03/12/17 16:43 16:43 22:56 WBC Hgb 9.1 L 9.6 L Hct 29.0 L 30.0 L Plt Count Sodium Potassium Chloride Carbon Dioxide BUN Creatinine Glucose Calcium Magnesium Troponin I 0.07 H* 03/12/17 03/13/17 03/13/17 22:56 07:11 07:11 WBC 3.2 L Hgb 9.5 L Hct 30.3 L Plt Count 205 Sodium 137 Potassium 4.2 Chloride 100 Carbon Dioxide 31 H BUN 29 H Creatinine 1.04 Glucose 225 H Calcium 9.9 Magnesium 1.9 Troponin I 0.05 H* - EKG Interpretation EKG results cardiology: personally reviewed (ECG from 03/12 at 1238, 03/12 at 1553 , 03/11 at 2339 were all reviewed demonstrating sinus tachycardia with frequent PACs, no acute findings), other (24h telemetry demonstrates sinus rhythm, frequent PACs, no atrial fibrillation or concerning dysrhythmia) Consult Discharge Plan - Plan [facility]: [facility] [Primary Care Provider] -
[2017-03-13] MEDS: Pantoprazole 40 MG VIAL IVP SCH (17:30)
[2017-03-14] MEDS: methylPREDNISolone 125 MG/2 ML VIAL IVP SCH ×4 (00:16→23:51)
[2017-03-14] MEDS: Levalbuterol Neb 0.63 MG/3 ML IH SCH ×4 (04:48→21:55)
[2017-03-14 05:07] LABS: Hemoglobin 9.7 g/dL (12.9-16.9); Immature Granulocytes % 0.9 % (0-4); Lymphocytes # 0.1 K/mcL (0.6-4.6); Lymphocytes % 2.6 %; Mean Corpuscular HGB Conc 32.3 g/dL (31.6-35.5); Mean Corpuscular Hemoglobin 30.3 pg (28.0-33.3); Mean Corpuscular Volume 93.8 fL (83.0-100.0); Mean Platelet Volume 9.1 fL (9.4-12.4); Monocytes # 0.3 K/mcL (0.0-1.3); Monocytes % 6.4 %; Neutrophils # 4.8 K/mcL (1.6-8.9); Platelet Count 208 K/mcL (140-400); Red Cell Distribution Width 15.2 % (11.5-14.5); Segmented Neutrophils % 90.1 %
[2017-03-14 05:29] LABS: BUN/Creatinine Ratio 27 (6-26); Blood Urea Nitrogen 30 mg/dL (8-23); Calcium 9.7 mg/dL (8.6-10.3); Carbon Dioxide 31 mEq/L (23-29); Chloride 100 mEq/L (98-107); Glucose 226 mg/dL (70-105); Osmolality,Calculated 297 (280-300); Potassium 3.5 mEq/L (3.5-5.1); Sodium 137 mEq/L (136-145); eGFR For African Americans > 60 (> 60); eGFR For Non-African Americans > 60 (> 60)
[2017-03-14] MEDS: Pantoprazole 40 MG VIAL IVP SCH (06:25)
[2017-03-14] MEDS: Levofloxacin 750 MG/150 ML 750 MG/150 ML BAG IVPB SCH (09:03)
[2017-03-14] MEDS: Sennosides/Docusate Sodium TABLET PO SCH ×2 (09:03→21:14)
[2017-03-14] MEDS: Folic Acid 1 MG TABLET PO SCH (09:03)
[2017-03-14] MEDS: *HR* HYDROcodone/Acet 5/325 mg TABLET PO PRN ×2 (09:03→21:27)
[2017-03-14] MEDS: Gabapentin 100 MG CAPSULE PO SCH ×3 (09:04→21:22)
[2017-03-14] MEDS: Metoprolol XL (24 HR) Succ 50 MG TAB.ER.24H PO SCH ×2 (09:04→21:22)
[2017-03-14] MEDS: Insulin LISPRO 300 UNITS/3 ML VIAL SQ SCH ×4 (09:04→21:13)
[2017-03-14] MEDS: *HR* Digoxin 0.125 MG TABLET PO SCH (09:04)
[2017-03-14] MEDS: Oseltamivir Phosphate 30 MG CAPSULE PO SCH ×2 (09:04→21:22)
[2017-03-14] MEDS: Furosemide 40 MG/4 ML VIAL IVP SCH (09:04)
--- NOTE | 2017-03-14 09:30 | Internal Med Progress Note ---
Date of Encounter: 03/14/17 Time of Encounter: 09:27 - Assessment and plan (1) COPD exacerbation Current Visit: Yes Status: Acute Assessment and plan: He is chronic O2 dependent. Uses 2 L continuously at home. The patient has been started on IV Solu-Medrol. We will wean down to every 8 hours from every 6 hours. Continue nebulizers. Wean down oxygen as tolerated. Continue with Levaquin. (2) Influenza A Current Visit: Yes Status: Acute Assessment and plan: Continue Tamiflu day 3. (3) CHF (congestive heart failure) Current Visit: Yes Status: Acute Assessment and plan: Likely an exacerbation of systolic heart failure. BNP was 738 and patient having increasing shortness of breath, vascular congestion on chest x-ray . Continue Lasix 40 mg daily. Monitor intake and output. daily weights. Fluid restriction. Continue beta shaggy. Qualifiers: Congestive heart failure type: unspecified Congestive heart failure chronicity: acute on chronic Qualified Code(s): I50.9 - Heart failure, unspecified (4) Elevated troponin Current Visit: Yes Status: Acute Assessment and plan: Remained around 0.05. Signal Constructor consulted. No chest pain. (5) CAD (coronary artery disease) Current Visit: Yes Status: Acute Assessment and plan: according to patient and patient was to undergo cardiac catheterization for an occlusive coronary artery disease on last Tuesday at [facility]-this was apparently unsuccessful. EKG with no ST-T wave abnormalities. Continue with home medications metoprolol. Continue statin. Continue aspirin.. Cardiology is consulted on admission. Echo pending Qualifiers: Coronary Disease-Associated Artery/Lesion type: [place] artery [place] vs. transplanted heart: [place] heart Associated angina: without angina Qualified Code(s): I25.10 - Atherosclerotic heart disease of [place] coronary artery without angina pectoris (6) Anemia Current Visit: Yes Status: Acute Assessment and plan: H&H has been stable here. No signs of bleeding. BUN is 29. was 21 yesterday. I do not suspect a GI bleed. I think his anemia is chronic. He has a colonoscopy and EGD last year and EGD was okay apparently and the colonoscopy showed some diverticulosis. Awaiting stools for occult bleeding. Iron studies shows anemia of chronic disease. Restart Eliquis once cardiology is okay with it and there is no plans for any procedures. has been held on admission for fear of GI bleed. . Qualifiers: Anemia type: unspecified type Qualified Code(s): D64.9 - Anemia, unspecified (7) Abdominal pain Current Visit: Yes Status: Acute Assessment and plan: Better today. Unclear etiology. Was able to have a bowel movement here. Multiple of them. Had No bowel movement for a week prior to that. Continue aggressive bowel regimen. CT of abdomen does show a abdominal aortic aneurysm 4.6 cm which patient was aware . This was evaluated apparently by surgeon at the outside facility. We will follow-up on those records. Liver panel is negative. Qualifiers: Abdominal location: generalized Qualified Code(s): R10.84 - Generalized abdominal pain (8) Chronic back pain Current Visit: Yes Status: Acute Assessment and plan: Continue pain control Qualifiers: Back pain location: low back pain Back pain laterality: unspecified Sciatica presence: unspecified whether sciatica present Qualified Code(s): M54.5 - Low back pain; G89.29 - Other chronic pain; G89.29 - Other chronic pain (9) Diabetes mellitus Current Visit: No Status: Chronic Assessment and plan: Continue with Accu-Cheks. Continue with insulin sliding scale. Monitor glucose while receiving IV steroids. 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 Continue with beta shaggy and digoxin. Eliquis is on hold for now secondary to above. Cardiology is consulted. Qualifiers: Atrial fibrillation type: paroxysmal Qualified Code(s): I48.0 - Paroxysmal atrial fibrillation (11) DVT prophylaxis Current Visit: Yes Status: Acute Assessment and plan: scds - Subjective Interval history: Patient seen and examined. He is very hard of hearing. is at bedside. His main complaint is trouble sleeping. There has been no acute issues. He was seen by cardiology. Has been afebrile. Echo was done. He was admitted with a hemoglobin drop as well as exacerbation of COPD and influenza. He has been afebrile. He is on 2 L of nasal cannula oxygen. - Constitutional Vitals: Temp Pulse Resp BP Pulse Ox 97.9 F 92 18 104/55 98 03/14/17 09:02 03/14/17 09:02 03/14/17 09:02 03/14/17 09:02 03/14/17 09:17 General appearance: Present: A&O X 3 Exam: GEN: NAD CVS: RRR. S1, S2, No m/r/g RESP: Diminished with no wheezes ABD: Soft, NT, ND, +BS EXT: No edema. 2+ DP. No rashes NEURO: Nonfocal Internal Medicine: Result - Labs CBC & Chem 7: 03/14/17 04:20 03/14/17 04:20 Labs: Short CBC 03/14/17 Range/Units 04:20 WBC 5.3 D (4.3-11.1) K/mcL Hgb 9.7 L (12.9-16.9) g/dL Hct 30.0 L (37.5-50.1) % Plt Count 208 (140-400) K/mcL Neutrophils # 4.8 (1.6-8.9) K/mcL BMP 03/13/17 03/14/17 07:11 04:20 Sodium 137 137 Potassium 4.2 3.5 Chloride 100 100 Carbon Dioxide 31 H 31 H BUN 29 H 30 H Creatinine 1.04 1.11 Glucose 225 H 226 H Calcium 9.9 9.7 Consult Discharge Plan - Plan [facility]errals: [facility] [Primary Care Provider] -
[2017-03-14] MEDS: Tiotropium 18 MCG inhalation IH SCH (10:14)
--- NOTE | 2017-03-14 10:40 | Cardiology Progress Note ---
Date of Encounter: 03/14/17 Time of Encounter: 10:00 Assessment and Plan (1) Influenza A Current Visit: Yes Status: Acute Per cardiology: -Admitted with influenza A. -Management per primary service. (2) CAD (coronary artery disease) Current Visit: Yes Status: Acute Per cardiology: -Per patient and , he underwent a diagnostic heart catheterization about a week ago at [facility]. His joinery machinist is Dr. Monsivais. Per , they were only able to do a diagnostic catheterization because of the abdominal aortic aneurysm. Apparently, the procedure was terminated and he was evaluated by a surgeon. Again, per the surgeon said to proceed with heart catheterization. The heart catheterization was scheduled as an outpatient this past Tuesday the patient did not show because of not feeling well. -On asa, statin, beta shaggy. -Denies chest pain. -No ischemic ECG changes. -At this time, patient and would like to proceed with staged PCI with at [place]. Possibly interested in transfer to [place] ( states she discussed with hospitalist). -Cardiology will sign off and recommend patient follow up with primary joinery machinist upon discharge. Please re-consult if patient wishes to proceed with LHC at [facility]. -Educated patient and , if patient is discharged, recommend ER evaluation for chest pain. Qualifiers: Coronary Disease-Associated Artery/Lesion type: [place] artery [place] vs. transplanted heart: [place] heart Associated angina: without angina Qualified Code(s): I25.10 - Atherosclerotic heart disease of [place] coronary artery without angina pectoris (3) Elevated troponin Current Visit: Yes Status: Acute Per cardiology: -Troponins are elevated mildly, flat and adynamic. They do not appear to represent acute coronary syndrome. -Likely representing demand ischemia in the setting of influenza. -No acute EKG changes. -Denies chest pain. -TTE with LVEF 55%, no segmental wall motion abnormalities. -Do not suspect NSTEMI, suspect demand ischemia related to above. NO cardiac rehab warranted. (4) Atrial fibrillation Current Visit: Yes Status: Acute Per cardiology: -Per and , atrial fibrillation was diagnosed at [facility]. -He was placed on digoxin and metoprolol and anticoagulated with Eliquis. -Suspect his heart rate will improve once the underlying illness is treated. -At this time, metoprolol cannot be increased secondary to borderline blood pressures. -Telemetry reviewed with average HR previous 12 hours 112, atrial fibrillation. -Will resume anticoagulation (patient does not wish to proceed with LHC at [facility]) . -Can titrate beta shaggy as BP will allow. Qualifiers: Atrial fibrillation type: paroxysmal Qualified Code(s): I48.0 - Paroxysmal atrial fibrillation (5) Abdominal aortic aneurysm Current Visit: Yes Status: Acute Per cardiology: -Apparently evaluated by a surgeon at [facility]. -CT [facility] with AAA 4.6cm. -Management per primary service. Qualifiers: Presence of rupture: without rupture Qualified Code(s): I71.4 - Abdominal aortic aneurysm, without rupture Discussion w patient/family: The assessment and plan as outlined above was discussed with the patient and/or family members who expressed understanding and agreement. All questions were answered. Thank you for involving us in the care of your patient. Please call with any questions. Discussed and reviewed with . Subjective Principal diagnosis: influenza, atrial fibrillation, elevated troponin Interval history: Patient states he feels better today. Denies chest pain. Objective Vital Signs, Last 4 Hours Temp Pulse Resp BP Pulse Ox 03/14/17 10:17 18 96 03/14/17 09:17 98 03/14/17 09:02 97.9 F 92 18 104/55 98 General: Conversant, No Apparent Distress HEENT: Atraumatic, Normocephaly, Mucus Membranes Moist Neck: No JVD, Normal carotid pulses Cardiac: Other (Irregularly irregular) Lungs: Other (Lung sounds coarse throughout) Neuro: Alert and responsive, No focal deficits noted Abdomen: Soft, Non-Tender Skin: No rashes noted on visualized skin Musculoskeletal: No Chest Wall Tenderness Extremities: No Clubbing, No Cyanosis, No Edema, Normal Pulses Results 03/14/17 04:20 03/14/17 04:20 Lab Results Impressions Echocardiogram 03/13/17 19:12 Impressions: LVEF 55-60%. Normal LV chamber size and function. Mild asymmetric hypertrophy of the basal septum. Indeterminate diastolic function. Normal right ventricular structure and function. No evidence of pulmonary hypertension identified. RVSP not well obtained. No significant valvular dysfunction. Left Ventricular Wall Motion: Rest Echo Findings All wall segments showed normal motion. Findings: Study Quality * Technically adequate exam. ECG Findings * Atrial fibrillation, RVR. HR 100s. Left Ventricle * LVEF 55-60%. * Normal LV chamber size and function. * Mild asymmetric hypertrophy of the basal septum. * Indeterminate diastolic function. Right Ventricle * Normal right ventricular structure and function. Left Atrium * Mildly dilated left atrium. Right Atrium * Normal right atrial size. Interatrial Septum * Interatrial septum not well evaluated. Aortic Valve * Trileaflet aortic valve. * Mildly calcified aortic valve leaflets. * No aortic regurgitation. * No aortic stenosis. Mitral Valve * Mild mitral annular calcification. * No mitral regurgitation. * No mitral stenosis. Tricuspid Valve * Normal tricuspid valve structure and function. * Trace tricuspid regurgitation. * No evidence of pulmonary hypertension identified. RVSP not well obtained. Pulmonic Valve * Pulmonic valve is not well visualized. Aorta * Normally sized aortic root. Pericardium * The pericardium appears normal. IVC * Normal IVC dimensions and inspiratory collapse. Pulmonary Artery * Normal visualized portions of the main pulmonary artery. Active Medications Acetaminophen (Tylenol) 650 mg PO Q6HR PRN PRN Reason: Mild Pain (1-3) Stop: 09/11/17 11:13 Hydrocodone Bitart/Acetaminophen ([place] 5-325 Mg) 1 tab PO Q4HR PRN PRN Reason: Moderate Pain Stop: 09/11/17 11:13 Last Admin: 03/14/17 09:03 Dose: 1 tab Aspirin (Aspirin Ec) 81 mg PO DAILY [facility] Stop: 09/11/17 12:31 Last Admin: 03/12/17 14:18 Dose: Not Given Dextrose/Water (Dextrose 50% (Syg)) 25 ml IVP AD PRN PRN Reason: Hypoglycemia Stop: 09/11/17 06:50 Digoxin (Lanoxin) 0.125 mg PO DAILY [facility] Stop: 09/12/17 12:34 Last Admin: 03/14/17 09:04 Dose: 0.125 mg Folic Acid (Folic Acid) 1 mg PO DAILY [facility] Stop: 09/12/17 09:01 Last Admin: 03/14/17 09:03 Dose: 1 mg Furosemide (Lasix) 40 mg IVP DAILY [facility] Stop: 09/11/17 15:16 Last Admin: 03/14/17 09:04 Dose: 40 mg Gabapentin (Neurontin) 100 mg PO TID [facility] Stop: 09/11/17 15:01 Last Admin: 03/14/17 09:04 Dose: 100 mg Glucagon (Glucagen) 1 mg IM ONCE PRN PRN Reason: Hypoglycemia Stop: 09/11/17 06:50 Glucose (Gluctose) 15 gm PO ONCE PRN PRN Reason: Hypoglycemia Stop: 09/11/17 06:50 Glucose (Gluctose) 30 gm PO ONCE PRN PRN Reason: Hypoglycemia Stop: 09/11/17 06:50 Dextrose (Dextrose 5%) 1,000 mls @ 100 mls/hr IVC .Q10H PRN PRN Reason: HYPOGLYCEMIA Stop: 09/11/17 06:50 Levofloxacin/Dextrose (Levaquin Premix 750mg/150 Ml) 750 mg in 150 mls @ 100 mls/hr IVPB DAILY [facility] PRN Reason: Protocol Stop: 03/14/17 11:30 Last Admin: 03/14/17 09:03 Dose: 100 mls/hr Insulin Human Lispro (Humalog) 0 units SQ HS [facility] PRN Reason: Protocol Stop: 09/11/17 21:01 Last Admin: 03/13/17 21:08 Dose: 2 units Insulin Human Lispro (Humalog) 0 units SQ TIDAC [facility] PRN Reason: Protocol Stop: 09/12/17 07:31 Last Admin: 03/14/17 09:04 Dose: 10 units Levalbuterol HCl (Xopenex) 0.63 mg IH [id number] [facility] Stop: 09/11/17 11:31 Last Admin: 03/14/17 10:13 Dose: 0.63 mg Levofloxacin (Levaquin) 750 mg PO DAILY [facility] Stop: 09/14/17 09:01 Methylprednisolone (Solu-Medrol) 60 mg IVP Q8HR [facility] Stop: 09/13/17 16:01 Metoprolol Succinate (Toprol Xl) 50 mg PO BID [facility] Stop: 09/11/17 12:41 Last Admin: 03/14/17 09:04 Dose: 50 mg Naloxone HCl (Narcan) 0.4 mg IVP Q2MIN PRN PRN Reason: Opioid Reversal Stop: 09/11/17 06:49 Oseltamivir Phosphate (Tamiflu) 30 mg PO BID [facility] Stop: 03/16/17 21:01 Last Admin: 03/14/17 09:04 Dose: 30 mg Pantoprazole Sodium (Protonix) 40 mg IVP Q12HR [facility] Stop: 09/12/17 18:01 Last Admin: 03/14/17 06:25 Dose: 40 mg Senna/Docusate Sodium (Senna Plus) 2 each PO BID [facility] PRN Reason: Protocol Stop: 09/11/17 21:01 Last Admin: 03/14/17 09:03 Dose: 2 each Simvastatin (Zocor) 40 mg PO HS [facility] PRN Reason: Protocol Stop: 09/11/17 21:01 Last Admin: 03/13/17 21:07 Dose: 40 mg Tiotropium [place] (Spiriva) 18 mcg IH DAILYR [facility] Stop: 09/13/17 10:01 Last Admin: 03/14/17 10:14 Dose: 18 mcg Laboratory Tests 03/12/17 03/12/17 03/12/17 00:18 10:14 16:43 Hgb Creatinine Troponin I 0.03 0.05 H* 0.07 H* 03/12/17 03/14/17 03/14/17 22:56 04:20 04:20 Hgb 9.7 L Creatinine 1.11 Troponin I 0.05 H* - Imaging and Cardiology Chest Xray: report reviewed Echo: report reviewed - EKG Interpretation EKG results cardiology: personally reviewed (ECG with ST, frequent PACS.), other (Telemetry reviewed with average HR previous 12 hours noted to be 112, atrial fibrillation. PVCs noted.) Consult Discharge Plan - Plan [facility]errals: [facility] [Primary Care Provider] -
[2017-03-14] MEDS: Apixaban 5 MG TABLET PO SCH ×2 (12:36→21:22)
[2017-03-15] MEDS: Levalbuterol Neb 0.63 MG/3 ML IH SCH ×4 (04:37→22:29)
[2017-03-15 05:58] LABS: Basophils % 0.2 %; Hematocrit 31.8 % (37.5-50.1); Hemoglobin 9.9 g/dL (12.9-16.9); Immature Granulocytes % 0.5 % (0-4); Lymphocytes # 0.2 K/mcL (0.6-4.6); Lymphocytes % 2.9 %; Mean Corpuscular HGB Conc 31.1 g/dL (31.6-35.5); Mean Corpuscular Hemoglobin 29.5 pg (28.0-33.3); Mean Corpuscular Volume 94.6 fL (83.0-100.0); Mean Platelet Volume 8.9 fL (9.4-12.4); Monocytes # 0.3 K/mcL (0.0-1.3); Neutrophils # 5.1 K/mcL (1.6-8.9); Platelet Count 197 K/mcL (140-400); Red Blood Count 3.36 M/mcL (4.19-5.50); Red Cell Distribution Width 14.7 % (11.5-14.5); Segmented Neutrophils % 91.4 %
[2017-03-15 06:13] LABS: BUN/Creatinine Ratio 26 (6-26); Blood Urea Nitrogen 29 mg/dL (8-23); Carbon Dioxide 32 mEq/L (23-29); Chloride 101 mEq/L (98-107); Glucose 290 mg/dL (70-105); Osmolality,Calculated 300 (280-300); Potassium 4.3 mEq/L (3.5-5.1); Sodium 137 mEq/L (136-145); eGFR For African Americans > 60 (> 60); eGFR For Non-African Americans > 60 (> 60)
[2017-03-15 06:24] LABS: Platelet Estimate Normal (Normal)
[2017-03-15] MEDS: Insulin LISPRO 300 UNITS/3 ML VIAL SQ SCH ×4 (08:40→21:38)
[2017-03-15] MEDS: Folic Acid 1 MG TABLET PO SCH (08:44)
[2017-03-15] MEDS: Gabapentin 100 MG CAPSULE PO SCH ×3 (08:44→21:22)
[2017-03-15] MEDS: levoFLOXacin 750 MG TABLET PO SCH (08:44)
[2017-03-15] MEDS: Furosemide 40 MG/4 ML VIAL IVP SCH (08:44)
[2017-03-15] MEDS: Metoprolol XL (24 HR) Succ 50 MG TAB.ER.24H PO SCH ×2 (08:44→21:22)
[2017-03-15] MEDS: Apixaban 5 MG TABLET PO SCH ×2 (08:45→21:22)
[2017-03-15] MEDS: Sennosides/Docusate Sodium TABLET PO SCH ×2 (08:45→21:22)
[2017-03-15] MEDS: *HR* Digoxin 0.125 MG TABLET PO SCH (08:45)
[2017-03-15] MEDS: Aspirin Enteric Coated 81 MG Tablet PO SCH (08:45)
[2017-03-15] MEDS: Oseltamivir Phosphate 30 MG CAPSULE PO SCH ×2 (08:45→21:22)
[2017-03-15] MEDS: methylPREDNISolone 125 MG/2 ML VIAL IVP SCH ×2 (08:45→21:23)
[2017-03-15] MEDS: *HR* HYDROcodone/Acet 5/325 mg TABLET PO PRN (09:03)
[2017-03-15] MEDS: Tiotropium 18 MCG inhalation IH SCH (10:43)
[2017-03-15] MEDS ORDERED: Furosemide 20 MG TABLET PO PRN (11:24)
--- NOTE | 2017-03-15 11:25 | Internal Med Progress Note ---
Date of Encounter: 03/15/17 Time of Encounter: 11:24 - Assessment and plan (1) COPD exacerbation Current Visit: Yes Status: Acute Assessment and plan: He is chronic O2 dependent. Uses 2 L continuously at home. The patient has been started on IV Solu-Medrol. No wheezes on exam. We will wean Solu-Medrol to every 12 hours today. Continue nebulizers. Wean down oxygen as tolerated. Continue with Levaquin. The patient may be able to discharge in a day or 2 (2) Influenza A Current Visit: Yes Status: Acute Assessment and plan: Continue Tamiflu day 4 (3) CHF (congestive heart failure) Current Visit: Yes Status: Acute Assessment and plan: Likely an exacerbation of systolic heart failure. BNP was 738 and patient having increasing shortness of breath, vascular congestion on chest x-ray . Continue Lasix 40 mg daily but will switch to oral. Monitor intake and output. daily weights. Fluid restriction. Continue beta shaggy. Qualifiers: Congestive heart failure type: unspecified Congestive heart failure chronicity: acute on chronic Qualified Code(s): I50.9 - Heart failure, unspecified (4) Elevated troponin Current Visit: Yes Status: Acute Assessment and plan: Remained around 0.05. Composing Machine Operator/Tender consulted. No chest pain. (5) CAD (coronary artery disease) Current Visit: Yes Status: Acute Assessment and plan: according to patient and patient was to undergo cardiac catheterization for an occlusive coronary artery disease on last Tuesday at [facility]-this was apparently unsuccessful. EKG with no ST-T wave abnormalities. Continue with home medications metoprolol. Continue statin. Continue aspirin.. Cardiology is consulted on admission. Echo EF 55-60%. I do not think there is an urgent need to transfer to [facility] for heart catheterization as the patient is not having any chest pain. I believe it is best to treat patient's acute issues currently and have him follow up with [facility] as an outpatient. This was explained to the who is in agreement. Qualifiers: Coronary Disease-Associated Artery/Lesion type: [place] artery [place] vs. transplanted heart: [place] heart Associated angina: without angina Qualified Code(s): I25.10 - Atherosclerotic heart disease of [place] coronary artery without angina pectoris (6) Anemia Current Visit: Yes Status: Acute Assessment and plan: H&H has been stable here. No signs of bleeding. His BUNs is elevated but he has been receiving Lasix. I do not suspect a GI bleed. I think his anemia is chronic. He has a colonoscopy and EGD last year and EGD was okay apparently and the colonoscopy showed some diverticulosis. Iron studies shows anemia of chronic disease. Restarted Eliquis and aspirin as cardiology was okay with it. Has been held on admission for fear of GI bleed. . Qualifiers: Anemia type: unspecified type Qualified Code(s): D64.9 - Anemia, unspecified (7) Abdominal pain Current Visit: Yes Status: Acute Assessment and plan: Better today. Unclear etiology. Was able to have a bowel movement here. Multiple of them. Had No bowel movement for a week prior to that. Continue aggressive bowel regimen. CT of abdomen does show a abdominal aortic aneurysm 4.6 cm which patient was aware . This was evaluated apparently by surgeon at the outside facility. We will follow-up on those records. Liver panel is negative. Qualifiers: Abdominal location: generalized Qualified Code(s): R10.84 - Generalized abdominal pain (8) Chronic back pain Current Visit: Yes Status: Acute Assessment and plan: Continue pain control Qualifiers: Back pain location: low back pain Back pain laterality: unspecified Sciatica presence: unspecified whether sciatica present Qualified Code(s): M54.5 - Low back pain; G89.29 - Other chronic pain; G89.29 - Other chronic pain (9) Diabetes mellitus Current Visit: No Status: Chronic Assessment and plan: Continue with Accu-Cheks. Continue with insulin sliding scale. Monitor glucose while receiving IV steroids. May need to give basal insulin Qualifiers: Diabetes mellitus type: type 2 Diabetes mellitus complication status: without complication Diabetes mellitus longterm insulin use: with bed bug exterminator use Qualified Code(s): E11.9 - Type 2 diabetes mellitus without complications ; Z79.4 - shelter (current) use of insulin; Z79.4 - watermaster (current) use of insulin; Z79.4 - shelter (current) use of insulin; Z79.4 - watermaster ( current) use of insulin (10) Atrial fibrillation Current Visit: Yes Status: Acute Assessment and plan: Continue with current medications. Audiology is helping. Continue with beta shaggy and digoxin. Check coagulation with Eliquis. Qualifiers: Atrial fibrillation type: paroxysmal Qualified Code(s): I48.0 - Paroxysmal atrial fibrillation (11) Olecranon bursitis, left elbow Current Visit: Yes Status: Acute Assessment and plan: There was supposed to follow up with orthopedics as an outpatient. The has asked me for orthopedics to see the patient while he is due. She showed me MRI results that showed that he has findings of a fluid collection of the left elbow. There is also some mention of bursitis as well as a partial tear over triceps tendon. We will ask orthopedics to see the patient. He was going to see Dr. Pickering (12) DVT prophylaxis Current Visit: Yes Status: Acute Assessment and plan: eliquis - Subjective Interval history: Patient seen and examined. He is very hard of hearing. is at bedside again. His breathing is improved significantly. Has been afebrile. Echo was done. He was admitted with a hemoglobin drop as well as exacerbation of COPD and influenza. He is on 2 L of nasal cannula oxygen. - Constitutional Vitals: Temp Pulse Resp BP Pulse Ox 98.1 F 105 18 114/69 94 03/15/17 06:57 03/15/17 06:57 03/15/17 06:57 03/15/17 06:57 03/15/17 06:57 General appearance: Present: A&O X 3 Exam: GEN: NAD CVS: RRR. S1, S2, No m/r/g RESP: Diminished with no wheezes ABD: Soft, NT, ND, +BS EXT: No edema. 2+ DP. No rashes NEURO: Nonfocal Internal Medicine: Result - Labs CBC & Chem 7: 03/15/17 05:35 03/15/17 05:35 Labs: Short CBC 03/15/17 Range/Units 05:35 WBC 5.6 (4.3-11.1) K/mcL Hgb 9.9 L (12.9-16.9) g/dL Hct 31.8 L (37.5-50.1) % Plt Count 197 (140-400) K/mcL Neutrophils # 5.1 (1.6-8.9) K/mcL BMP 03/15/17 05:35 Sodium 137 Potassium 4.3 Chloride 101 Carbon Dioxide 32 H BUN 29 H Creatinine 1.12 Glucose 290 H Calcium 10.0 Consult Discharge Plan - Plan [facility]errals: [facility] [Primary Care Provider] -
[2017-03-15] MEDS: Insulin DETEMIR 100 UNIT/ML X5UNITS SQ SCH (16:51)
--- NOTE | 2017-03-15 16:51 | Electrocardiograph Report ---
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
--- NOTE | 2017-03-15 18:06 | Orthopedic Consult Note ---
Date of Encounter: 03/16/17 Time of Encounter: 17:45 Assessment and Plan (1) Olecranon bursitis, left elbow Current Visit: Yes Status: Acute MRI from 12/2016 showed a fluid collection probably bursitis and partial triceps tear. On exam patient had full ROM and good strength to left upper extremity equal bilaterally. There was a small pinpoint scab noted to posterior elbow over olecranon but no fluid collection or open wounds at this time. Patient had consult scheduled with Dr. Pickering for this twice this month but has cancelled both of those appointments, likely related to his recent admission to [facility] for cardiac cath. Will discuss case with Dr. Pickering for further recommendations but again at this time he has full ROM and strength with no s/s infection and no fluid on elbow to be drained. Will update tomorrow with Dr. Pickering's recommendations. History of Present Illness Chief complaint: left elbow pain HPI: Mr. Fonseca is a 81 year old male who was admitted for abdominal pain and low back pain. He was recently discharged from [facility] for cardiac cath for which plan to do this on outpatient basis now according to hospitalist note. Orthopedics consulted for patients chronic left elbow pain. 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 Family not present on exam. Patient did have an appointment scheduled with Dr. Pickering on 02/28/17 which he rescheduled to 03/07/17 and then cancelled this appointment as well. The appointment was for follow up after an MRI from 12/2016 showing possible bursitis and partial triceps tear. Patient denies any history of trauma stating he just keeps bumping his elbow on things and that makes it hurt. Unable to give me any other history. Past Med Surg Social Fam HX - Past Medical History Medical history: atrial fibrillation, diabetes, GERD, hyperlipidemia, hypertension, other Psychiatric history: no psych history - Social History Smoking Status: Former smoker Smokeless Tobacco Status: No Alcohol use: none Drug use: none - Family History Mother Hx Family Endocrine Disorder: Yes (dm) Father Hx Family Cardiac Disorders: Yes Medications and Allergies Apixaban [Eliquis] 5 mg PO BID 03/12/17 [History] Aspirin [Lo-Dose Aspirin EC] 81 mg PO DAILY 03/12/17 [History] Cyclobenzaprine [Flexeril] 10 mg PO BID 03/12/17 [History] Digoxin [Lanoxin] 0.125 mg PO DAILY 03/12/17 [History] Doxazosin Mesylate [Cardura] 2 mg PO DAILY 03/12/17 [History] Folic Acid 1 mg PO DAILY 03/12/17 [History] Furosemide [Lasix] 20 mg PO DAILY 03/12/17 [History] Gabapentin [Neurontin] 100 mg PO TID 03/12/17 [History] Insulin ASPART [Novolog Flexpen] 2 - 10 unit SQ TIDWM 03/12/17 [History] Insulin Glargine [Lantus] 18 units SQ QAM 03/12/17 [History] Metoprolol Succinate 50 mg PO BID 03/12/17 [History] Omeprazole [PriLOSEC] 40 mg PO BID 03/12/17 [History] OxyCODONE/APAP 5/325 [Percocet 5/325 MG] 1 tab PO Q4H PRN 03/12/17 [History] PredniSONE [Deltasone] 10 mg PO DAILY 03/12/17 [History] Simvastatin [Zocor] 40 mg PO HS 03/12/17 [History] Sucralfate [Carafate] 1 gm PO QID 03/12/17 [History] Tiotropium [Spiriva] 18 mcg IH DAILY 03/12/17 [History] Tramadol HCl [Ultram] 50 mg PO QID PRN 03/12/17 [History] cephALEXin [Keflex] 500 mg PO BID 03/12/17 [History] 3 Allergy/AdvReac Type Severity Reaction Status Date / Time celecoxib [From Celebrex] Allergy Hives Verified 03/12/17 19:13 Penicillins Allergy Hives Verified 03/12/17 19:13 Sulfa (Sulfonamide Allergy Hives Verified 03/12/17 19:13 Antibiotics) All Systems Reviewed: A 10-system review of systems was performed and is negative for pertinent findings except as documented above in the HPI. - Constitutional Constitutional: as per HPI - Musculoskeletal Musculoskeletal: as per HPI Physical Exam - Constitutional Vitals: Temp Pulse Resp BP Pulse Ox 98.1 F 91 16 111/65 95 03/15/17 15:35 03/15/17 15:35 03/15/17 16:33 03/15/17 15:35 03/15/17 16:33 - Elbow left Location of pain elbow: posterior (small pinpoint scab noted on posterior elbow over olecranon with no surrounding erythema or palpable fluid surrounding area. Full ROM and strength to elbow/forearm and hand, no deficits noted. grossly NV intact) Results - Labs Result Diagrams: 03/16/17 06:15 03/16/17 06:15 Labs: Abnormal lab results RBC 3.36 M/mcL (4.19-5.50) L 03/15/17 05:35 Hgb 9.9 g/dL (12.9-16.9) L 03/15/17 05:35 Hct 31.8 % (37.5-50.1) L 03/15/17 05:35 MCHC 31.1 g/dL (31.6-35.5) L 03/15/17 05:35 RDW 14.7 % (11.5-14.5) H 03/15/17 05:35 MPV 8.9 fL (9.4-12.4) L 03/15/17 05:35 Lymphocytes # 0.2 K/mcL (0.6-4.6) L 03/15/17 05:35 Carbon Dioxide 32 mEq/L (23-29) H 03/15/17 05:35 BUN 29 mg/dL (8-23) H 03/15/17 05:35 Glucose 290 mg/dL (70-105) H 03/15/17 05:35 POC Glucose 327 (58-89) H 03/15/17 11:25 Iron 30 mcg/dL (65-175) L 03/12/17 11:39 % Saturation 9 % (20-55) L 03/12/17 11:39 Ferritin 353 ng/ml (20-250) H 03/13/17 07:11 Troponin I 0.05 ng/mL (< 0.04) H* 03/12/17 22:56 Serum Total Protein 5.9 g/dL (6.4-8.9) L 03/12/17 00:18 Globulin 2.2 g/dL (2.4-3.5) L 03/12/17 00:18 Lipase 4 Units/L (11-82) L 03/12/17 00:18 Folate 39.0 ng/mL (3.0-16.0) H 03/12/17 11:39 H & H 03/15/17 Range/Units 05:35 Hgb 9.9 L (12.9-16.9) g/dL Hct 31.8 L (37.5-50.1) % All other labs normal. - Diagnostic results Elbow MRI: image reviewed Consult Discharge Plan - Plan [facility]errals: [facility] [Primary Care Provider] - - Attending Attestation Case and plan of care discussed with supervising physician who was available for all aspects of care
[2017-03-16] MEDS: Levalbuterol Neb 0.63 MG/3 ML IH SCH ×4 (04:20→21:13)
[2017-03-16 06:44] LABS: Hematocrit 31.5 % (37.5-50.1); Hemoglobin 9.8 g/dL (12.9-16.9); Immature Granulocytes % 0.5 % (0-4); Lymphocytes % 2.9 %; Mean Corpuscular HGB Conc 31.1 g/dL (31.6-35.5); Mean Corpuscular Hemoglobin 29.1 pg (28.0-33.3); Mean Corpuscular Volume 93.5 fL (83.0-100.0); Mean Platelet Volume 9.2 fL (9.4-12.4); Monocytes % 5.9 %; Platelet Count 214 K/mcL (140-400); Red Blood Count 3.37 M/mcL (4.19-5.50); Red Cell Distribution Width 14.6 % (11.5-14.5); Segmented Neutrophils % 90.7 %
[2017-03-16 06:45] LABS: Lymphocytes # 0.2 K/mcL (0.6-4.6); Monocytes # 0.4 K/mcL (0.0-1.3); Neutrophils # 5.4 K/mcL (1.6-8.9)
[2017-03-16 07:10] LABS: BUN/Creatinine Ratio 25 (6-26); Blood Urea Nitrogen 30 mg/dL (8-23); Calcium 10.3 mg/dL (8.6-10.3); Carbon Dioxide 32 mEq/L (23-29); Chloride 102 mEq/L (98-107); Glucose 255 mg/dL (70-105); Osmolality,Calculated 303 (280-300); Sodium 139 mEq/L (136-145); eGFR For African Americans > 60 (> 60); eGFR For Non-African Americans 59 (> 60)
[2017-03-16 07:48] LABS: Platelet Estimate Normal (Normal)
--- NOTE | 2017-03-16 07:52 | Electrocardiograph Report ---
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
[2017-03-16] MEDS: *HR* Digoxin 0.125 MG TABLET PO SCH (08:25)
[2017-03-16] MEDS: *HR* HYDROcodone/Acet 5/325 mg TABLET PO PRN ×3 (08:25→22:42)
[2017-03-16] MEDS: Oseltamivir Phosphate 30 MG CAPSULE PO SCH ×2 (08:25→22:42)
[2017-03-16] MEDS: Metoprolol XL (24 HR) Succ 50 MG TAB.ER.24H PO SCH ×2 (08:25→22:44)
[2017-03-16] MEDS: Folic Acid 1 MG TABLET PO SCH (08:25)
[2017-03-16] MEDS: Gabapentin 100 MG CAPSULE PO SCH ×2 (08:26→18:04)
[2017-03-16] MEDS: Aspirin Enteric Coated 81 MG Tablet PO SCH (08:26)
[2017-03-16] MEDS: levoFLOXacin 750 MG TABLET PO SCH (08:26)
[2017-03-16] MEDS: Sennosides/Docusate Sodium TABLET PO SCH ×2 (08:26→22:44)
[2017-03-16] MEDS: Apixaban 5 MG TABLET PO SCH ×2 (08:26→22:44)
[2017-03-16] MEDS: Insulin DETEMIR 100 UNIT/ML X5UNITS SQ SCH (08:29)
[2017-03-16] MEDS: methylPREDNISolone 125 MG/2 ML VIAL IVP SCH (08:29)
[2017-03-16] MEDS: Insulin LISPRO 300 UNITS/3 ML VIAL SQ SCH ×4 (08:30→20:31)
[2017-03-16] MEDS: Tiotropium 18 MCG inhalation IH SCH (10:34)
--- NOTE | 2017-03-16 16:03 | Event Note ---
Date of Encounter: 03/16/17 Time of Encounter: 13:[address] Pickering. Again, MRI from 12/2016 showed bursitis/partial triceps tear. Patient has full ROM and good strength to LUE, no fluid or s/s infection noted to right elbow. Discussed with patient that can follow up on outpatient basis if he continues to have issues with the elbow but will be nonsurgical at this time. Can call for appt with Dr. Pickering in [facility] whenever patient would like to follow up.
--- NOTE | 2017-03-16 17:00 | Internal Med Progress Note ---
Date of Encounter: 03/16/17 Time of Encounter: 10:30 - Assessment and plan (1) Influenza A Current Visit: Yes Status: Acute Assessment and plan: Completed 5-day course of Tamiflu; clinically improved; (2) COPD exacerbation Current Visit: Yes Status: Acute Assessment and plan: improving; continue empiric IV antibiotics- Levaquin- day 5; will change steroids to enteral Prednisone; continue bronchodilators and supplemental O2 as needed; PT/OT evaluation; (3) CAD (coronary artery disease) Current Visit: Yes Status: Chronic Assessment and plan: Patient has been evaluated by Cardiology for elevated Troponin; he does follow with Cardiology as outpatient and gas been scheduled for outpatient staged PCI, and the plan is to continue this followup; continue ASA, beta shaggy, statin; Qualifiers: Coronary Disease-Associated Artery/Lesion type: [place] artery [place] vs. transplanted heart: [place] heart Associated angina: without angina Qualified Code(s): I25.10 - Atherosclerotic heart disease of [place] coronary artery without angina pectoris (4) Elevated troponin Current Visit: Yes Status: Acute Assessment and plan: plan as above; (5) CHF (congestive heart failure) Current Visit: Yes Status: Acute Assessment and plan: Echocardiogram shows 55-60% EF, indeterminate diastolic function; improving clinically; continue PO Lasix, Digoxin and beta shaggy; fluid restriction; Qualifiers: Congestive heart failure type: unspecified Congestive heart failure chronicity: acute on chronic Qualified Code(s): I50.9 - Heart failure, unspecified (6) Atrial fibrillation Current Visit: Yes Status: Chronic Assessment and plan: patient continues to have tachycardia; will increase Metoprolol to 75mg BID along with PRN IV Lopressor for appropriate HR control; continue anticoagulation with Eliquis; Qualifiers: Atrial fibrillation type: paroxysmal Qualified Code(s): I48.0 - Paroxysmal atrial fibrillation (7) Abdominal aortic aneurysm Current Visit: Yes Status: Chronic Assessment and plan: noted to be stable in size and is being followed as outpatient by vascular surgery; Qualifiers: Presence of rupture: without rupture Qualified Code(s): I71.4 - Abdominal aortic aneurysm, without rupture (8) Olecranon bursitis, left elbow Current Visit: Yes Status: Chronic Assessment and plan: patient was noted to have 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 No chest pain, shortness of breath. Improving cough. - Constitutional Vitals: Temp Pulse Resp BP Pulse Ox 97.7 F 105 16 110/67 96 03/16/17 16:32 03/16/17 16:32 03/16/17 16:32 03/16/17 16:32 03/16/17 16:32 General appearance: Present: A&O X 3 (Very hard of hearing), answers questions appropriately - Respiratory Respiratory exam: Present: CTAB (Coarse breath sounds bilaterally. No wheezing) . Absent: accessory muscle use, rales, rhonchi, wheezes - Cardiovascular Cardiovascular exam: Present: irregular rhythm, +S1, +S2. Absent: diastolic murmur, gallop, rubs, systolic murmur - GI/Abdominal GI/Abdominal exam: Present: normal bowel sounds, soft, no peritoneal signs. Absent: distended, tenderness - Extremities Exam Extremities exam: Present: full ROM, warm, radial pulses palpable and symmetrical. Absent: calf tenderness, cyanotic, pedal edema - Neurological Exam Neurological exam: Present: CN II-XII intact, oriented X3, no focal deficits. Absent: pronater drift, facial droop, speech deficit Internal Medicine: Result - Labs CBC & Chem 7: 03/16/17 06:15 03/17/17 08:47 Labs: Short CBC 03/16/17 Range/Units 06:15 WBC 5.9 (4.3-11.1) K/mcL Hgb 9.8 L (12.9-16.9) g/dL Hct 31.5 L (37.5-50.1) % Plt Count 214 (140-400) K/mcL Neutrophils # 5.4 (1.6-8.9) K/mcL BMP 03/16/17 06:15 Sodium 139 Potassium 4.0 Chloride 102 Carbon Dioxide 32 H BUN 30 H Creatinine 1.19 Glucose 255 H Calcium 10.3 Consult Discharge Plan - Plan [facility]errals: [facility] [Primary Care Provider] -
--- NOTE | 2017-03-16 17:52 | Electrocardiograph Report ---
[employer] Test Date: 2017-03-11 Pat Name: Dion Fonseca Department: 102 Room: 2A25 Gender: M Video Effects Editor: [facility] : 1935 Requested By: Emmanuel Mendieta Order Number: [id number] Reading MD: Gonzalo Lindquist MD Measurements Intervals [place] Rate: 124 P: -39 [place]: 128 QRS: 37 QRSD: 86 T: 72 QT: 297 QTc: 371 Interpretive Statements SINUS TACHYCARDIA WITH OCCASIONAL SUPRAVENTRICULAR PREMATURE COMPLEXES NONSPECIFIC ST & T-WAVE ABNORMALITY ABNORMAL RHYTHM ECG Electronically Signed On 03-16-2017 17:50:34 EST by Gonzalo Lindquist MD
[2017-03-16] MEDS: *HR* Metoprolol 5 MG/5 ML VIAL IVP PRN (19:33)
[2017-03-16] MEDS: predniSONE 20 MG TABLET PO SCH (20:31)
[2017-03-17] MEDS: Levalbuterol Neb 0.63 MG/3 ML IH SCH ×4 (04:32→23:09)
[2017-03-17] MEDS: predniSONE 20 MG TABLET PO SCH (08:36)
[2017-03-17] MEDS: *HR* HYDROcodone/Acet 5/325 mg TABLET PO PRN ×3 (08:38→21:28)
[2017-03-17] MEDS: Sennosides/Docusate Sodium TABLET PO SCH ×2 (08:40→21:27)
[2017-03-17] MEDS: Furosemide 20 MG TABLET PO SCH (08:40)
[2017-03-17] MEDS: Apixaban 5 MG TABLET PO SCH ×2 (08:41→21:27)
[2017-03-17] MEDS: *HR* Digoxin 0.125 MG TABLET PO SCH (08:41)
[2017-03-17] MEDS: Metoprolol XL (24 HR) Succ 50 MG TAB.ER.24H PO SCH ×2 (08:41→21:27)
[2017-03-17] MEDS: levoFLOXacin 750 MG TABLET PO SCH (08:41)
[2017-03-17] MEDS: Insulin LISPRO 300 UNITS/3 ML VIAL SQ SCH ×4 (08:43→21:30)
[2017-03-17] MEDS: Aspirin Enteric Coated 81 MG Tablet PO SCH (08:44)
[2017-03-17] MEDS: Folic Acid 1 MG TABLET PO SCH (08:44)
[2017-03-17] MEDS: Gabapentin 100 MG CAPSULE PO SCH ×3 (08:47→21:27)
[2017-03-17] MEDS ORDERED: Insulin DETEMIR 100 UNIT/ML X5UNITS SQ SCH (09:00)
[2017-03-17 09:13] LABS: BUN/Creatinine Ratio 31 (6-26); Blood Urea Nitrogen 31 mg/dL (8-23); Calcium 10.7 mg/dL (8.6-10.3); Carbon Dioxide 28 mEq/L (23-29); Chloride 104 mEq/L (98-107); Glucose 306 mg/dL (70-105); Osmolality,Calculated 304 (280-300); Potassium 4.1 mEq/L (3.5-5.1); Sodium 138 mEq/L (136-145); eGFR For African Americans > 60 (> 60); eGFR For Non-African Americans > 60 (> 60)
[2017-03-17] MEDS: Tiotropium 18 MCG inhalation IH SCH (10:18)
--- NOTE | 2017-03-17 18:36 | Internal Med Progress Note ---
Date of Encounter: 03/17/17 Time of Encounter: 16:00 - Assessment and plan (1) Influenza A Status: Acute Assessment and plan: Completed 5-day course of Tamiflu; clinically improved; (2) COPD exacerbation Status: Acute Assessment and plan: improving; continue empiric IV antibiotics- Levaquin- day 6; continue enteral Prednisone; continue bronchodilators and supplemental O2 as needed; PT/OT evaluation noted, recommend ECF placement; social media community manager working on the same; (3) CAD (coronary artery disease) Status: Chronic Assessment and plan: Patient has been evaluated by Cardiology for elevated Troponin; he does follow with Cardiology as outpatient and has been scheduled for outpatient staged PCI, and the plan is to continue this followup; continue ASA, beta shaggy, statin; Qualifiers: Coronary Disease-Associated Artery/Lesion type: [place] artery [place] vs. transplanted heart: [place] heart Associated angina: without angina Qualified Code(s): I25.10 - Atherosclerotic heart disease of [place] coronary artery without angina pectoris (4) Elevated troponin Status: Acute (5) CHF (congestive heart failure) Status: Acute Qualifiers: Congestive heart failure type: unspecified Congestive heart failure chronicity: acute on chronic Qualified Code(s): I50.9 - Heart failure, unspecified (6) Atrial fibrillation Status: Chronic Assessment and plan: HR better controlled; continue Metoprolol to 75mg BID along with PRN IV Lopressor for appropriate HR control; continue anticoagulation with Eliquis; Qualifiers: Atrial fibrillation type: paroxysmal Qualified Code(s): I48.0 - Paroxysmal atrial fibrillation (7) Abdominal aortic aneurysm Status: Chronic Qualifiers: Presence of rupture: without rupture Qualified Code(s): I71.4 - Abdominal aortic aneurysm, without rupture (8) Olecranon bursitis, left elbow Status: Chronic (9) Diabetes mellitus Status: Chronic Assessment and plan: Continue with Accu-Cheks. 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 No chest pain, shortness of breath. Denies new complaints ; awaiting rehab placement; - Constitutional Vitals: Temp Pulse Resp BP Pulse Ox 97.7 F 96 17 109/60 92 03/17/17 16:08 03/17/17 16:08 03/17/17 16:08 03/17/17 16:08 03/17/17 16:08 General appearance: Present: A&O X 3 (Very hard of hearing), answers questions appropriately - Respiratory Respiratory exam: Present: decreased breath sounds (B/L decreased air entry), CTAB. Absent: accessory muscle use, rales, rhonchi, wheezes - Cardiovascular Cardiovascular exam: Present: RRR, +S1, +S2. Absent: diastolic murmur, gallop, rubs, systolic murmur - GI/Abdominal GI/Abdominal exam: Present: normal bowel sounds, soft, no peritoneal signs. Absent: distended, tenderness Internal Medicine: Result - Labs CBC & Chem 7: 03/16/17 06:15 03/17/17 08:47 Labs: BMP 03/17/17 08:47 Sodium 138 Potassium 4.1 Chloride 104 Carbon Dioxide 28 BUN 31 H Creatinine 0.99 Glucose 306 H Calcium 10.7 H Consult Discharge Plan - Plan Instructions: Atrial Fibrillation (DC) Additional Instructions: F/up with PCP in 1-2 weeks [facility]errals: [facility] [Primary Care Provider] - ([facility])
[2017-03-17] MEDS: *HR* Metoprolol 5 MG/5 ML VIAL IVP PRN (21:28)
[2017-03-17] MEDS: Insulin DETEMIR 100 UNIT/ML X5UNITS SQ SCH (21:28)
[2017-03-18] MEDS: Levalbuterol Neb 0.63 MG/3 ML IH SCH ×2 (03:52→10:31)
[2017-03-18 07:54] VITALS: BP 113/72
[2017-03-18] MEDS: Insulin LISPRO 300 UNITS/3 ML VIAL SQ SCH (08:20)
[2017-03-18] MEDS: predniSONE 20 MG TABLET PO SCH (09:26)
[2017-03-18] MEDS: Sennosides/Docusate Sodium TABLET PO SCH (09:26)
[2017-03-18] MEDS: Aspirin Enteric Coated 81 MG Tablet PO SCH (09:26)
[2017-03-18] MEDS: levoFLOXacin 750 MG TABLET PO SCH (09:26)
[2017-03-18] MEDS: Gabapentin 100 MG CAPSULE PO SCH (09:27)
[2017-03-18] MEDS: Folic Acid 1 MG TABLET PO SCH (09:27)
[2017-03-18] MEDS: Metoprolol XL (24 HR) Succ 50 MG TAB.ER.24H PO SCH (09:27)
[2017-03-18] MEDS: Furosemide 20 MG TABLET PO SCH (09:27)
[2017-03-18] MEDS: *HR* Digoxin 0.125 MG TABLET PO SCH (09:28)
[2017-03-18] MEDS: Insulin DETEMIR 100 UNIT/ML X5UNITS SQ SCH (09:28)
[2017-03-18] MEDS: Apixaban 5 MG TABLET PO SCH (09:28)
[2017-03-18] MEDS: Tiotropium 18 MCG inhalation IH SCH (10:32)
--- NOTE | 2017-03-18 10:48 | Discharge Summary ---
Date of Encounter: 03/18/17 Time of Encounter: 10:42 - Discharge Diagnosis (1) Influenza A Priority: Primary Status: Acute (2) COPD exacerbation Priority: Primary Status: Acute (3) CAD (coronary artery disease) Priority: Secondary Status: Chronic Qualifiers: Coronary Disease-Associated Artery/Lesion type: [place] artery [place] vs. transplanted heart: [place] heart Associated angina: without angina Qualified Code(s): I25.10 - Atherosclerotic heart disease of [place] coronary artery without angina pectoris (4) Elevated troponin Priority: Primary Status: Acute (5) Atrial fibrillation Priority: Secondary Status: Chronic Qualifiers: Atrial fibrillation type: paroxysmal Qualified Code(s): I48.0 - Paroxysmal atrial fibrillation (6) Abdominal aortic aneurysm Priority: Secondary Status: Chronic Qualifiers: Presence of rupture: without rupture Qualified Code(s): I71.4 - Abdominal aortic aneurysm, without rupture (7) Olecranon bursitis, left elbow Priority: Primary Status: Chronic - Discharge Medications Home Medications: Apixaban [Eliquis] 5 mg PO BID 03/12/17 [History] Aspirin [Lo-Dose Aspirin EC] 81 mg PO DAILY 03/12/17 [History] Cyclobenzaprine [Flexeril] 10 mg PO BID 03/12/17 [History] Digoxin [Lanoxin] 0.125 mg PO DAILY 03/12/17 [History] Doxazosin Mesylate [Cardura] 2 mg PO DAILY 03/12/17 [History] Folic Acid 1 mg PO DAILY 03/12/17 [History] Furosemide [Lasix] 20 mg PO DAILY 03/12/17 [History] Gabapentin [Neurontin] 100 mg PO TID 03/12/17 [History] Insulin ASPART [Novolog Flexpen] 2 - 10 unit SQ TIDWM 03/12/17 [History] Insulin Glargine [Lantus] 18 units SQ QAM 03/12/17 [History] Omeprazole [PriLOSEC] 40 mg PO BID 03/12/17 [History] OxyCODONE/APAP 5/325 [Percocet 5/325 MG] 1 tab PO Q4H PRN 03/12/17 [History] PredniSONE [Deltasone] 10 mg PO DAILY 03/12/17 [History] Simvastatin [Zocor] 40 mg PO HS 03/12/17 [History] Sucralfate [Carafate] 1 gm PO QID 03/12/17 [History] Tiotropium [Spiriva] 18 mcg IH DAILY 03/12/17 [History] Tramadol HCl [Ultram] 50 mg PO QID PRN 03/12/17 [History] Levalbuterol Neb [Xopenex Neb] 0.63 mg IH [id number] vial.neb 03/18/17 [Rx] Metoprolol XL (24 HR) Succ [Toprol Xl] 75 mg PO BID tab.er.24h 03/18/17 [Rx] predniSONE [PredniSONE] 40 mg PO DAILY 5 Days tablet 03/18/17 [Rx] Allergies/Adverse Reactions: 3 Allergy/AdvReac Type Severity Reaction Status Date / Time celecoxib [From Celebrex] Allergy Hives Verified 03/12/17 19:13 Penicillins Allergy Hives Verified 03/12/17 19:13 Sulfa (Sulfonamide Allergy Hives Verified 03/12/17 19:13 Antibiotics) Date of admission: 03/12/17 03:10 [facility] care physician[facility] Consults: 03/12/17 17:04 Consult to Cardiology [CONS] Routine Comment: Consulting Provider: Cardiology Deloris Reason for Consult: tachycardia, Time Notified: 12:04 Call Completed: No 03/14/17 12:12 Consult to Orthopedic Surgery [CONS] Routine Consulting Provider: Cale Pickering Reason for Consult: left elbow swelling/ tricep tendon tear, fluid collection , olecrenon bursitis Call Completed: No 03/15/17 11:12 Consult to Occupational Therapy [CONS] Routine Comment: Evaluate, develop and implement POC Reason for Consult: therapy/placement needs Consult to Physical Therapy [CONS] Routine Comment: Evaluate, develop and implement POC Reason for Consult: PT eval 03/17/17 07:57 Consult to Wildlife Biostation Research Ecologist [CONS] Routine Reason for SW Consult: needs ecf Discharging clinician: Yamilet Ackerman Anticipated date of discharge: 03/18/17 - Patient Status Disposition: Transfer [facility] Condition: Fair Functional capacity at discharge: uses cane/walker Overall status at discharge: patient is progressing back to baseline - Discharge Instructions Instructions: Atrial Fibrillation (DC) Follow [facility] With: [facility] [Primary Care Provider] - ([facility] with [facility]) Additional Instructions: F/up with PCP in 1-2 weeks - Diet and Activity Activity: as per physical therapy, wear oxygen at all times Diet: diabetic diet, low fat, low cholesterol, low salt diet Hospital course: Mr. Fonseca is a 81 year old male with the above medical problems, who was admitted with worsening cough and shortness of breath. He was noted to be in acute exacerbation of COPD, likely related to flu. He tested positive for influenza A and has been started on Tamiflu, completed course. He also received IV steroids, bronchodilators and supplemental oxygen and significantly improved. He was noted to have a troponin leak at the time of admission. Cardiology was consulted and it was noted that patient was scheduled for a staged PTCA procedure with his own thermometer tester as an outpatient, and patient and his decided to pursue this option and cardiology signed off with no further inpatient recommendations. He was also noted to have tachycardia during this admission and his beta shaggy was uptitrated. He also had subacute to chronic left olecranon bursitis. Outpatient MRI showing partial triceps tendon tear. Orthopedic surgery was consulted and recommended no inpatient management, to follow-up as outpatient. Patient was evaluated by physical and occupational therapy and recommended ECF placement. He is currently medically stable for transfer to [place] skilled nursing. - Time Spent with Patient Total time spent providing and/or coordinating discharge services: Greater than 30 minutes (45 min) - Constitutional Vitals: Temp Pulse Resp BP Pulse Ox 97.8 F 104 17 113/72 98 03/18/17 07:46 03/18/17 07:46 03/18/17 10:33 03/18/17 07:46 03/18/17 10:33 General appearance: Present: A&O X 3 (very hard of hearing), answers questions appropriately - Respiratory Respiratory exam: Present: CTAB (coarse breath sounds, slightly decreased air entry B/L). Absent: accessory muscle use, rales, rhonchi, wheezes
--- NOTE | 2017-03-18 11:13 | Physician Discharge Referral ---
ExtendedCare Referral Info Transfer To: [place] Provider in Charge: Yamilet Ackerman Provider in Charge after Transfer: PCP Institutional Level of Care: Intermediate - Diagnosis (1) Influenza A Priority: Primary Status: Acute (2) COPD exacerbation Priority: Primary Status: Acute (3) CAD (coronary artery disease) Priority: Secondary Status: Chronic (4) Elevated troponin Priority: Primary Status: Acute (5) Atrial fibrillation Priority: Secondary Status: Chronic (6) Abdominal aortic aneurysm Priority: Secondary Status: Chronic (7) Olecranon bursitis, left elbow Priority: Primary Status: Chronic Expected Duration of Placement: 3 weeks Prognosis: Fair Aware of Diagnosis: Patient Aware of Prognosis: Patient - Transfer Medications Home Medications: Apixaban [Eliquis] 5 mg PO BID 03/12/17 [History] Aspirin [Lo-Dose Aspirin EC] 81 mg PO DAILY 03/12/17 [History] Cyclobenzaprine [Flexeril] 10 mg PO BID 03/12/17 [History] Digoxin [Lanoxin] 0.125 mg PO DAILY 03/12/17 [History] Doxazosin Mesylate [Cardura] 2 mg PO DAILY 03/12/17 [History] Folic Acid 1 mg PO DAILY 03/12/17 [History] Furosemide [Lasix] 20 mg PO DAILY 03/12/17 [History] Gabapentin [Neurontin] 100 mg PO TID 03/12/17 [History] Insulin ASPART [Novolog Flexpen] 2 - 10 unit SQ TIDWM 03/12/17 [History] Insulin Glargine [Lantus] 18 units SQ QAM 03/12/17 [History] Omeprazole [PriLOSEC] 40 mg PO BID 03/12/17 [History] OxyCODONE/APAP 5/325 [Percocet 5/325 MG] 1 tab PO Q4H PRN 03/12/17 [History] PredniSONE [Deltasone] 10 mg PO DAILY 03/12/17 [History] Simvastatin [Zocor] 40 mg PO HS 03/12/17 [History] Sucralfate [Carafate] 1 gm PO QID 03/12/17 [History] Tiotropium [Spiriva] 18 mcg IH DAILY 03/12/17 [History] Tramadol HCl [Ultram] 50 mg PO QID PRN 03/12/17 [History] Levalbuterol Neb [Xopenex Neb] 0.63 mg IH [id number] vial.neb 03/18/17 [Rx] Metoprolol XL (24 HR) Succ [Toprol Xl] 75 mg PO BID tab.er.24h 03/18/17 [Rx] predniSONE [PredniSONE] 40 mg PO DAILY 5 Days tablet 03/18/17 [Rx] Allergies/Adverse Reactions: 3 Allergy/AdvReac Type Severity Reaction Status Date / Time celecoxib [From Celebrex] Allergy Hives Verified 03/12/17 19:13 Penicillins Allergy Hives Verified 03/12/17 19:13 Sulfa (Sulfonamide Allergy Hives Verified 03/12/17 19:13 Antibiotics) - Respiratory Orders Oxygen / L per min (2L/min via [place]) Smoking Cessation: Smoking cessation has been advised. For more information, call the [place] Tobacco Quit Line at 3-624-ENCS-NOW. - Advance Directives Power of Trademark Affixer: Yes Code Status: Full Code - Mobility Orders Ambulate - Rehabiliation Orders Rehab Potential: Fair Rehab Orders: ROM Exercises, Evaluation for Physical Therapy, Evaluation for Occupational Therapy - Diet Orders No Concentrated Sweets (diabetic), Cardiac CERTIFICATION: I certify that the transfer of the above named patient to an Extended Care Facility is necessary for the continuing treatment of the diagnosis listed. The above information is true and accurate reflection of patient's current condition. Confidential - Redisclosure prohibited without a patient's written consent.
== END 2017-03-18 11:37 | DRG 193 ==
LOC: EMEROO 23:22 → SUATTDRO 03-12 03:10 → 2ANU 03-12 03:10
PROVIDERS: ADMIT Pediatrics; ATTEND Internal Medicine